=== PATIENT | male | born 1965 | race Caucasian/White ===

== ENCOUNTER 2019-03-24 08:58 | Outpatient (RCR) | payer MEDICARE, MEDICAID, SELFPAY | END 2019-03-26 23:59 | disposition home or self-care (01) | LOC: WOUND 08:58 | PROVIDERS: Family Provider Family Medicine; Visit Provider Nurse Practitioner Family | DX: E11.621 Type 2 diabetes mellitus with foot ulcer (principal); L97.512 Non-pressure chronic ulcer of other part of right foot with fat layer exposed; I96 Gangrene, not elsewhere classified | CPT/HCPCS: 11042; 87070; 87077; 87176; 87186; 87205; L3260 ==

== ENCOUNTER 2019-04-01 02:05 | Outpatient (RCR) | payer MEDICARE, MEDICAID, SELFPAY ==
--- NOTE | 2019-03-30 11:22 | USCV_ITS ---
Martinez Albarado Age: 53 Gender: M : 1965 Exam Date: 03/30/2019 11:36 Ordering Phys: Doris Matias Technologist: Sharon Callejas [place]am [place] [facility] [place]: HISTORY: Lower extremity swelling. PROCEDURES: Bilateral duplex Venous Insufficiency study of the Deep and Superficial systems was carried out according to normal protocol with the patient in supine positon for deep system and dependent position for the superficial system. FINDINGS: There is no evidence of bilateral deep vein thrombosis. No evidence of superficial thrombosis in the bilateral saphenous system. No evidence of reflux was noted in the LEFT deep venous system. Venous reflux was demonstrated in the RIGHT SFJ with a spectral display of greater than 500 milliseconds. No venous reflux noted in the RIGHT greater saphenous vein. No venous reflux noted in the RIGHT small saphenous vein. Venous reflux is demonstrated in the LEFT greater saphenous vein with a spectral Doppler display of greater than 500 milliseconds at all levels. No venous reflux noted in the LEFT small saphenous vein. CONCLUSIONS No evidence of DVT in the above-mentioned identifiable veins. Significant venous reflux of greater than 1000 ms were noted at the left femoral and popliteal veins On the right side, significant venous reflux of greater than 500 ms was noted at the saphenofemoral junction. On the left side, significant venous reflux of greater than 500 ms were noted distal to the saphenofemoral junction, proximal, mid and distal greater saphenous vein segments. The venous dimensions, reflux times and depth from the surface are as mentioned above Dr Hyun Campoverde MD [facility] (Electronically Signed) Final Date: 30 March 2019 19:20 S
== END 2019-04-24 23:59 | disposition home or self-care (01) ==
LOC: RAD 02:05
PROVIDERS: Family Provider Family Medicine; PCP Family Medicine; Visit Provider Nurse Practitioner Family
DX: M79.89 Other specified soft tissue disorders (principal); I73.9 Peripheral vascular disease, unspecified; M79.605 Pain in left leg; M79.604 Pain in right leg
CPT/HCPCS: 93970

== ENCOUNTER 2019-04-06 13:23 | Outpatient (CLI) | payer MEDICARE, MEDICAID, SELFPAY ==
[2019-04-06 14:10] LABS: Basophils % 0.5 %; Eosinophils # 0.1 10^3/uL (0.0-0.8); Eosinophils % 1.6 %; Hematocrit 26.8 % (42.0-52.0); Hemoglobin 7.8 g/dL (11.7-16.6); Lymphocytes # 1.7 10^3/uL (0.8-4.8); Mean Corpuscular HGB Conc 29.1 g/dL (30.0-36.0); Mean Corpuscular Hemoglobin 27.6 pg (28.0-34.0); Mean Corpuscular Volume 94.7 fL (80-94); Mean Platelet Volume 11.2 fL (7.4-10.4); Monocytes # 0.4 10^3/uL (0.2-0.9); Monocytes % 4.5 %; Neutrophils # 5.9 10^3/uL (1.8-7.7); Nucleated Red Blood Cells % 0 %; Platelet Count 363 10^3/cmm (130-400); Red Blood Count 2.83 10^6/uL (4.1-5.3); Red Cell Distribution Width 13.3 % (12.1-15.1); White Blood Count 8.2 10^3/uL (4.0-10.0)
[2019-04-06 14:59] LABS: Urine Creatinine 24 mg/dL (39-259)
[2019-04-06 15:00] LABS: Albumin Level 3.1 g/dL (3.5-5.2); Anion Gap 21.9 (5-19); Blood Urea Nitrogen 47 mg/dL (6-20); Calcium 9.8 mg/dL (8.5-10.5); Carbon Dioxide 25 mmol/L (22-29); Chloride 83 mmol/L (98-107); Potassium 4.9 mmol/L (3.5-5.1); Sodium 125 mmol/L (136-145)
[2019-04-06 15:09] LABS: UPRO/UCREAT Ratio 7.71 mg/mg CR; Urine Protein Random 185 mg/dL
[2019-04-06 15:14] LABS: Calcium 9.4 mg/dL (8.5-10.5); Parathyroid Hormone 30.2 pg/mL (15-65)
[2019-04-06 15:43] LABS: 25 Hydroxy Vitamin D 50 ng/mL (30-100)
[2019-04-06 15:59] LABS: Glucose 1068 mg/dL (65-115)
== END 2019-04-06 13:24 | disposition home or self-care (01) ==
LOC: LAB 13:30
PROVIDERS: Family Provider Family Medicine; PCP Family Medicine; Visit Provider Internal Medicine
DX: E10.42 Type 1 diabetes mellitus with diabetic polyneuropathy (principal); E78.49 Other hyperlipidemia; R14.0 Abdominal distension (gaseous); Z89.422 Acquired absence of other left toe(s); E10.22 Type 1 diabetes mellitus with diabetic chronic kidney disease; N18.3 Chronic kidney disease, stage 3 (moderate); I12.9 Hypertensive chronic kidney disease with stage 1 through stage 4 chronic kidney disease, or unspecified chronic kidney disease
CPT/HCPCS: 36415; 80069; 82306; 82310; 82570; 82985; 83970; 84156; 85025

== ENCOUNTER 2019-04-21 08:50 | Outpatient (RCR) | payer MEDICARE, MEDICAID, SELFPAY | END 2019-04-24 23:59 | disposition home or self-care (01) | LOC: WOUND 08:50 | PROVIDERS: Family Provider Family Medicine; PCP Family Medicine; Visit Provider Nurse Practitioner Family | DX: E11.621 Type 2 diabetes mellitus with foot ulcer (principal); L97.512 Non-pressure chronic ulcer of other part of right foot with fat layer exposed; I96 Gangrene, not elsewhere classified | CPT/HCPCS: 11042; 99214; G0463; L3260 ==

== ENCOUNTER 2019-05-04 | Outpatient (RCR) | payer MEDICARE, MEDICAID, SELFPAY | END 2019-05-12 | disposition home or self-care (01) | LOC: RAD | PROVIDERS: PCP Family Medicine; Visit Provider Nurse Practitioner Family | DX: E11.621 Type 2 diabetes mellitus with foot ulcer (principal); L97.512 Non-pressure chronic ulcer of other part of right foot with fat layer exposed; E11.22 Type 2 diabetes mellitus with diabetic chronic kidney disease; N18.4 Chronic kidney disease, stage 4 (severe) | CPT/HCPCS: 11042 ==

== ENCOUNTER 2019-05-12 10:34 | Outpatient (RCR) | payer MEDICARE, MEDICAID, SELFPAY ==
--- NOTE | 2019-05-12 10:38 | XR_ITS ---
WS: [id number] XR foot RT min 3V* [id number] REASON FOR EXAM: PAIN, REDNESS, NONHEALING ULCER FINDINGS: Ulcerated area under the great toe and second toe. No destructive changes of the phalanges metatarsals or tarsals. There is soft tissue swelling of the foot seen. XR/XR foot RT min 3V* [id number] IMPRESSION: Suspect ulcerated areas under the distal metatarsal phalangeal junction. Soft tissue swelling the foot.
--- NOTE | 2019-05-12 10:58 | USCV_ITS ---
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 Supernormal resting ABIs bilaterally Normal PVR waveforms Normal TBIs bilaterally CONCLUSIONS No evidence of any significant arterial obstruction, based on the above findings. Dr Hyun Campoverde MD FAC (Electronically Signed) Final Date: 13 May 2019 08:14 S
[2019-05-12 12:22] LABS: Basophils % 0.4 %; Eosinophils # 0.2 10^3/uL (0.0-0.8); Eosinophils % 3.3 %; Hematocrit 28.2 % (42.0-52.0); Hemoglobin 8.7 g/dL (11.7-16.6); Lymphocytes # 2.1 10^3/uL (0.8-4.8); Lymphocytes % 42.2 %; Mean Corpuscular HGB Conc 30.9 g/dL (30.0-36.0); Mean Corpuscular Hemoglobin 27.4 pg (28.0-34.0); Mean Corpuscular Volume 88.7 fL (80-94); Mean Platelet Volume 10.2 fL (7.4-10.4); Monocytes # 0.5 10^3/uL (0.2-0.9); Monocytes % 9.4 %; Neutrophils # 2.2 10^3/uL (1.8-7.7); Neutrophils % 44.5 %; Nucleated Red Blood Cells % 0 %; Platelet Count 341 10^3/cmm (130-400); Red Blood Count 3.18 10^6/uL (4.1-5.3); Red Cell Distribution Width 13.6 % (12.1-15.1); White Blood Count 4.9 10^3/uL (4.0-10.0)
[2019-05-12 12:42] LABS: Albumin Level 4.1 g/dL (3.5-5.2); Anion Gap 15.1 (5-19); Blood Urea Nitrogen 55 mg/dL (6-20); Calcium 10.2 mg/dL (8.5-10.5); Carbon Dioxide 33 mmol/L (22-29); Chloride 98 mmol/L (98-107); Glomerular Filtration Rate 16.8 mL/min (90-130); Glucose 94 mg/dL (65-115); Phosphorus 5.8 mg/dL (2.5-4.5); Potassium 5.1 mmol/L (3.5-5.1); Sodium 141 mmol/L (136-145)
[2019-05-12 13:45] LABS: Calcium 9.8 mg/dL (8.5-10.5); Parathyroid Hormone 62.9 pg/mL (15-65)
[2019-05-12 14:14] LABS: Urine Creatinine < 4 mg/dL (39-259); Urine Protein Random < 4 mg/dL
[2019-05-12 14:38] LABS: Anion Gap 14.1 (5-19); Blood Urea Nitrogen 47 mg/dL (6-20); Carbon Dioxide 33 mmol/L (22-29); Chloride 98 mmol/L (98-107); Ferritin 67 ng/mL (30-400); Glomerular Filtration Rate 16.8 mL/min (90-130); Glucose 91 mg/dL (65-115); Iron 87 ug/dL (59-158); Osmolality Calculated 288 mOsm/kg (285-295); Percent Saturation 25.8 % (20-50); Potassium 5.1 mmol/L (3.5-5.1); Sodium 140 mmol/L (136-145); Total Iron Binding Capacity 337 mcg/dl; Unsaturated Iron Binding 250 ug/dL (112-347)
[2019-05-13 13:21] LABS: C-Peptide <0.10 ng/mL (0.80-3.85)
== END 2019-05-25 23:59 | disposition home or self-care (01) ==
LOC: WOUND 10:34
PROVIDERS: Family Provider Family Medicine; PCP Family Medicine; Visit Provider Emergency Medicine
DX: E11.621 Type 2 diabetes mellitus with foot ulcer (principal); L97.512 Non-pressure chronic ulcer of other part of right foot with fat layer exposed; M79.671 Pain in right foot; E10.42 Type 1 diabetes mellitus with diabetic polyneuropathy; N18.3 Chronic kidney disease, stage 3 (moderate); M79.89 Other specified soft tissue disorders
CPT/HCPCS: 11042; 36415; 73630; 80048; 80069; 82310; 82570; 82728; 83540; 83550; 83970; 84156; 84681; 85025; 87070; 87077; 87176; 87186; 87205; 93923; A6446; L3260

== ENCOUNTER 2019-05-28 15:27 | Outpatient (CLI) | payer MEDICARE, MEDICAID, SELFPAY ==
--- NOTE | 2019-05-28 15:45 | US_ITS ---
WS: [id number] ULTRASOUND RENAL TECHNIQUE: Ultrasound examination of both kidneys. CLINICAL INFORMATION: ACUTE KIDNEY FAILURE COMPARISON: None. FINDINGS: RIGHT: Right kidney is normal in size and appearance. Echogenicity: Increased Cortical thickness: 1.4 cm; Normal. Hydronephrosis: None. Perinephric fluid: None. Right kidney measures: 12.9 cm x 5.3 cm x 5.8 cm. LEFT: Left kidney is normal in size and appearance. Echogenicity: Increased Cortical thickness: 1.9 cm; Normal. Hydronephrosis: None. Perinephric fluid: None. Left kidney measures: 12.9 cm x 4.7 cm x 5.4 cm. Normal visualized aorta. Normal bladder. US/US renal BI* [id number] IMPRESSION: 1. Both kidneys are normal in size. No hydronephrosis. 2. Increased echogenicity in both kidneys and be seen with medical renal disea se. No significant cortical atrophy. 3. Normal bladder.
== END 2019-05-28 15:28 | disposition home or self-care (01) ==
LOC: RADWPI 15:31
PROVIDERS: Family Provider Family Medicine; PCP Family Medicine; Visit Provider Nurse Practitioner Family
DX: N17.8 Other acute kidney failure (principal)
CPT/HCPCS: 76770

== ENCOUNTER 2019-06-09 11:16 | Outpatient (CLI) | payer MEDICARE, MEDICAID, SELFPAY ==
[2019-06-09 11:52] LABS: Basophils % 0.5 %; Eosinophils # 0.4 10^3/uL (0.0-0.8); Eosinophils % 6.5 %; Hematocrit 25.1 % (42.0-52.0); Hemoglobin 7.8 g/dL (11.7-16.6); Lymphocytes # 1.9 10^3/uL (0.8-4.8); Lymphocytes % 30.2 %; Mean Corpuscular HGB Conc 31.1 g/dL (30.0-36.0); Mean Corpuscular Hemoglobin 26.9 pg (28.0-34.0); Mean Corpuscular Volume 86.6 fL (80-94); Mean Platelet Volume 10.8 fL (7.4-10.4); Monocytes # 0.6 10^3/uL (0.2-0.9); Monocytes % 8.9 %; Neutrophils # 3.3 10^3/uL (1.8-7.7); Neutrophils % 53.7 %; Nucleated Red Blood Cells % 0 %; Platelet Count 243 10^3/cmm (130-400); Red Cell Distribution Width 14.6 % (12.1-15.1); White Blood Count 6.2 10^3/uL (4.0-10.0)
[2019-06-09 12:07] LABS: Albumin Level 3.5 g/dL (3.5-5.2); Anion Gap 13.8 (5-19); Blood Urea Nitrogen 32 mg/dL (6-20); Calcium 9.5 mg/dL (8.5-10.5); Carbon Dioxide 28 mmol/L (22-29); Chloride 104 mmol/L (98-107); Glomerular Filtration Rate 26.1 mL/min (90-130); Glucose 127 mg/dL (65-115); Phosphorus 5.1 mg/dL (2.5-4.5); Potassium 4.8 mmol/L (3.5-5.1); Sodium 141 mmol/L (136-145)
[2019-06-09 12:21] LABS: Bilirubin Urine Neg (NEGATIVE); Blood Urine Neg (Negative); Glucose Urine UA 1+ (Normal); Ketones Urine Negative (Negative); Nitrate Urine Negative (Negative); Protein Urine 3+ (Negative); Specific Gravity, Urine 1.015 (1.005-1.030); Urine Appearance Clear (CLEAR); Urine Color Yellow (Yellow); Urobilinogen Urine Norm (Negative); pH Urine 6 (5-7)
[2019-06-09 12:22] LABS: Leukocyte Esterase Urine Negative (Negative)
[2019-06-09 12:23] LABS: Add Urine Culture? No; Bacteria Urine TRACE; Hyaline Casts Urine 0-4; Squamous Epithelial Cell Urine 0-4 (0-5)
[2019-06-09 12:35] LABS: Urine Creatinine 116 mg/dL (39-259)
[2019-06-09 12:41] LABS: Calcium 9.2 mg/dL (8.5-10.5); Parathyroid Hormone 43.7 pg/mL (15-65)
[2019-06-09 13:10] LABS: UPRO/UCREAT Ratio 6.08 mg/mg CR; Urine Protein Random 705 mg/dL
[2019-06-09 13:11] LABS: Eosinophil Urine No Eosinophils Seen
== END 2019-06-09 11:17 | disposition home or self-care (01) ==
PROVIDERS: Family Provider Family Medicine; PCP Family Medicine; Visit Provider Nurse Practitioner Family
DX: N18.4 Chronic kidney disease, stage 4 (severe) (principal); N17.8 Other acute kidney failure
CPT/HCPCS: 36415; 80069; 81001; 82310; 82570; 83970; 84156; 85025; 85999

== ENCOUNTER 2019-06-22 14:08 | Outpatient (RCR) | payer MEDICARE, MEDICAID, SELFPAY | END 2019-06-24 23:59 | disposition home or self-care (01) | LOC: WOUND 14:08 | PROVIDERS: Family Provider Family Medicine; PCP Family Medicine; Visit Provider Thoracic Surgery (Cardiothoracic Vascular Surgery) | DX: E11.621 Type 2 diabetes mellitus with foot ulcer (principal); L97.512 Non-pressure chronic ulcer of other part of right foot with fat layer exposed | CPT/HCPCS: 11042; 29445; 36415; 80069; 81001; 82310; 82570; 83970; 84156; 85025; 85999; L4387 ==

== ENCOUNTER 2019-06-29 13:46 | Outpatient (CLI) | payer MEDICARE, MEDICAID, SELFPAY | END 2019-06-29 13:47 | disposition home or self-care (01) | LOC: WOUND 13:49 | PROVIDERS: Family Provider Family Medicine; PCP Family Medicine; Visit Provider Thoracic Surgery (Cardiothoracic Vascular Surgery) | DX: E11.621 Type 2 diabetes mellitus with foot ulcer (principal); L97.512 Non-pressure chronic ulcer of other part of right foot with fat layer exposed | CPT/HCPCS: 11042 ==

== ENCOUNTER 2019-07-13 10:33 | Outpatient (CLI) | payer MEDICARE, MEDICAID, SELFPAY | END 2019-07-13 10:34 | disposition home or self-care (01) | LOC: WOUND 10:34 | PROVIDERS: Family Provider Family Medicine; PCP Family Medicine; Visit Provider Thoracic Surgery (Cardiothoracic Vascular Surgery) | DX: E11.621 Type 2 diabetes mellitus with foot ulcer (principal); L97.512 Non-pressure chronic ulcer of other part of right foot with fat layer exposed | CPT/HCPCS: 11042 ==

== ENCOUNTER 2019-07-20 10:23 | Outpatient (CLI) | payer MEDICARE, MEDICAID, SELFPAY | END 2019-07-20 10:24 | disposition home or self-care (01) | LOC: WOUND 10:25 | PROVIDERS: PCP Family Medicine; Visit Provider Thoracic Surgery (Cardiothoracic Vascular Surgery) | DX: E11.621 Type 2 diabetes mellitus with foot ulcer (principal); L97.512 Non-pressure chronic ulcer of other part of right foot with fat layer exposed | CPT/HCPCS: 11042; A6530; A6545 ==

== ENCOUNTER 2019-07-20 11:41 | Outpatient (CLI) | payer MEDICARE, MEDICAID, SELFPAY ==
[2019-07-20 12:44] LABS: Anion Gap 12.5 (5-19); Blood Urea Nitrogen 38 mg/dL (6-20); Calcium 8.4 mg/dL (8.5-10.5); Carbon Dioxide 29 mmol/L (22-29); Chloride 104 mmol/L (98-107); Glomerular Filtration Rate 23.9 mL/min (90-130); Glucose 112 mg/dL (65-115); Osmolality Calculated 290 mOsm/kg (285-295); Potassium 4.5 mmol/L (3.5-5.1); Sodium 141 mmol/L (136-145)
== END 2019-07-20 11:42 | disposition home or self-care (01) ==
LOC: LAB 11:47
PROVIDERS: PCP Family Medicine; Visit Provider Nurse Practitioner Family
DX: N18.4 Chronic kidney disease, stage 4 (severe) (principal)
CPT/HCPCS: 80048

== ENCOUNTER 2019-07-22 13:28 | Outpatient (CLI) | payer MEDICARE, MEDICAID, SELFPAY ==
[2019-07-22 14:38] LABS: Estmated Average Glucose 240
[2019-07-22 14:46] LABS: Alanine Aminotransferase 25 U/L (0-41); Anion Gap 13.3 (5-19); Blood Urea Nitrogen 41 mg/dL (6-20); Carbon Dioxide 28 mmol/L (22-29); Chloride 103 mmol/L (98-107); Chol HDL Ratio 3.44 mg/dL (1.0-5.00); Cholesterol 148 mg/dL (0-200); Glomerular Filtration Rate 24.9 mL/min (90-130); Glucose 161 mg/dL (65-115); HDL Cholesterol 43 mg/dL (60-100); LDL Cholesterol Calculated 82 mg/dL (50-129); Osmolality Calculated 291 mOsm/kg (285-295); Potassium 4.3 mmol/L (3.5-5.1); Sodium 140 mmol/L (136-145); Triglycerides 114 mg/dL (0-150); VLDL Cholestrol Calculation 23 mg/dL (0-30)
== END 2019-07-22 13:29 | disposition home or self-care (01) ==
LOC: LAB 13:37
PROVIDERS: PCP Family Medicine; Visit Provider Physician Assistant Medical
DX: E10.65 Type 1 diabetes mellitus with hyperglycemia (principal); E10.42 Type 1 diabetes mellitus with diabetic polyneuropathy; E10.22 Type 1 diabetes mellitus with diabetic chronic kidney disease; I10 Essential (primary) hypertension; E78.49 Other hyperlipidemia; E10.29 Type 1 diabetes mellitus with other diabetic kidney complication
CPT/HCPCS: 36415; 80048; 80061; 83036; 84460

== ENCOUNTER 2019-08-08 14:27 | Outpatient (CLI) | payer MEDICARE, MEDICAID, SELFPAY ==
[2019-08-08 14:58] LABS: Basophils % 0.6 %; Eosinophils # 0.1 10^3/uL (0.0-0.8); Eosinophils % 2.5 %; Hematocrit 28.8 % (42.0-52.0); Hemoglobin 9.3 g/dL (11.7-16.6); Lymphocytes # 2.3 10^3/uL (0.8-4.8); Lymphocytes % 43.1 %; Mean Corpuscular HGB Conc 32.3 g/dL (30.0-36.0); Mean Corpuscular Hemoglobin 26.3 pg (28.0-34.0); Mean Corpuscular Volume 81.6 fL (80-94); Mean Platelet Volume 10.6 fL (7.4-10.4); Monocytes # 0.4 10^3/uL (0.2-0.9); Monocytes % 7.5 %; Neutrophils # 2.4 10^3/uL (1.8-7.7); Neutrophils % 46.1 %; Nucleated Red Blood Cells % 0 %; Platelet Count 236 10^3/cmm (130-400); Red Blood Count 3.53 10^6/uL (4.1-5.3); White Blood Count 5.2 10^3/uL (4.0-10.0)
[2019-08-08 15:18] LABS: Alanine Aminotransferase 19 U/L (0-41); Albumin Level 3.5 g/dL (3.5-5.2); Anion Gap 14.9 (5-19); Blood Urea Nitrogen 36 mg/dL (6-20); Calcium 9.3 mg/dL (8.5-10.5); Carbon Dioxide 27 mmol/L (22-29); Chloride 101 mmol/L (98-107); Chol HDL Ratio 5.31 mg/dL (1.0-5.00); Cholesterol 207 mg/dL (0-200); Ferritin 69 ng/mL (30-400); Glomerular Filtration Rate 20.5 mL/min (90-130); Glucose 132 mg/dL (65-115); HDL Cholesterol 39 mg/dL (60-100); Iron 76 ug/dL (59-158); LDL Cholesterol Calculated 134 mg/dL (50-129); LDL HDL Ratio 3.44 RATIO (0.00-3.22); Percent Saturation 41.7 % (20-50); Phosphorus 4.8 mg/dL (2.5-4.5); Potassium 3.9 mmol/L (3.5-5.1); Sodium 139 mmol/L (136-145); Total Iron Binding Capacity 182 mcg/dl; Triglycerides 169 mg/dL (0-150); Unsaturated Iron Binding 106 ug/dL (112-347)
[2019-08-08 15:28] LABS: Urine Creatinine 107 mg/dL (39-259)
[2019-08-08 15:36] LABS: Calcium 9.5 mg/dL (8.5-10.5); Parathyroid Hormone 28.8 pg/mL (15-65)
[2019-08-08 15:50] LABS: UPRO/UCREAT Ratio 4.42 mg/mg CR; Urine Protein Random 473 mg/dL
[2019-08-08 16:01] LABS: Estmated Average Glucose 240
== END 2019-08-08 14:28 | disposition home or self-care (01) ==
PROVIDERS: PCP Family Medicine; Visit Provider Internal Medicine
DX: E10.65 Type 1 diabetes mellitus with hyperglycemia (principal); E10.42 Type 1 diabetes mellitus with diabetic polyneuropathy; E10.22 Type 1 diabetes mellitus with diabetic chronic kidney disease; N18.4 Chronic kidney disease, stage 4 (severe); D63.1 Anemia in chronic kidney disease; I12.9 Hypertensive chronic kidney disease with stage 1 through stage 4 chronic kidney disease, or unspecified chronic kidney disease; E10.29 Type 1 diabetes mellitus with other diabetic kidney complication; E78.49 Other hyperlipidemia
CPT/HCPCS: 36415; 80061; 80069; 82310; 82570; 82728; 83036; 83540; 83550; 83970; 84156; 84460; 85025

== ENCOUNTER 2019-09-20 09:04 | Outpatient (CLI) | payer MEDICARE, MEDICAID, SELFPAY ==
[2019-09-20 10:16] LABS: Basophils % 0.6 %; Eosinophils # 0.2 10^3/uL (0.0-0.8); Eosinophils % 3.4 %; Hematocrit 30.3 % (42.0-52.0); Hemoglobin 9.7 g/dL (11.7-16.6); Lymphocytes # 2.5 10^3/uL (0.8-4.8); Lymphocytes % 35.4 %; Mean Corpuscular Volume 81.2 fL (80-94); Mean Platelet Volume 10.9 fL (7.4-10.4); Monocytes # 0.5 10^3/uL (0.2-0.9); Monocytes % 7.2 %; Neutrophils # 3.72 10^3/uL (1.8-7.7); Neutrophils % 53.3 %; Nucleated Red Blood Cells % 0 %; Platelet Count 291 10^3/cmm (130-400); Red Blood Count 3.73 10^6/uL (4.1-5.3); Red Cell Distribution Width 15.1 % (12.1-15.1)
[2019-09-20 10:37] LABS: Albumin Level 3.2 g/dL (3.5-5.2); Blood Urea Nitrogen 42 mg/dL (6-20); Carbon Dioxide 28 mmol/L (22-29); Chloride 102 mmol/L (98-107); Ferritin 139 ng/mL (30-400); Glomerular Filtration Rate 18.5 mL/min (90-130); Glucose 121 mg/dL (65-115); Iron 63 ug/dL (59-158); Percent Saturation 38.6 % (20-50); Phosphorus 4.2 mg/dL (2.5-4.5); Sodium 138 mmol/L (136-145); Total Iron Binding Capacity 163 mcg/dl; Unsaturated Iron Binding 100 ug/dL (112-347)
[2019-09-20 10:39] LABS: Urine Creatinine 134 mg/dL (39-259)
[2019-09-20 10:49] LABS: Calcium 8.6 mg/dL (8.5-10.5); Parathyroid Hormone 69.4 pg/mL (15-65)
[2019-09-20 10:52] LABS: UPRO/UCREAT Ratio 3.99 mg/mg CR; Urine Protein Random 535 mg/dL
== END 2019-09-20 09:05 | disposition home or self-care (01) ==
PROVIDERS: PCP Family Medicine; Visit Provider Nurse Practitioner Family
DX: D63.1 Anemia in chronic kidney disease (principal)
CPT/HCPCS: 36415; 80069; 82310; 82570; 82728; 83540; 83550; 83970; 84156; 85025

== ENCOUNTER 2019-09-20 09:20 | Outpatient (CLI) | payer MEDICARE, MEDICAID, SELFPAY ==
[2019-09-20 10:36] LABS: Alanine Aminotransferase 23 U/L (0-41); Anion Gap 14.1 (5-19); Blood Urea Nitrogen 43 mg/dL (6-20); Calcium 7.9 mg/dL (8.5-10.5); Carbon Dioxide 27 mmol/L (22-29); Chloride 102 mmol/L (98-107); Chol HDL Ratio 5.68 mg/dL (1.0-5.00); Cholesterol 216 mg/dL (0-200); Glomerular Filtration Rate 19.1 mL/min (90-130); Glucose 123 mg/dL (65-115); HDL Cholesterol 38 mg/dL (60-100); LDL Cholesterol Calculated 132 mg/dL (50-129); Osmolality Calculated 287 mOsm/kg (285-295); Potassium 4.1 mmol/L (3.5-5.1); Sodium 139 mmol/L (136-145); Triglycerides 228 mg/dL (0-150); VLDL Cholestrol Calculation 46 mg/dL (0-30)
== END 2019-09-20 09:21 | disposition home or self-care (01) ==
PROVIDERS: PCP Family Medicine; Visit Provider Physician Assistant Medical
DX: E10.65 Type 1 diabetes mellitus with hyperglycemia (principal); E10.42 Type 1 diabetes mellitus with diabetic polyneuropathy; E10.22 Type 1 diabetes mellitus with diabetic chronic kidney disease; I10 Essential (primary) hypertension; E78.49 Other hyperlipidemia; E10.29 Type 1 diabetes mellitus with other diabetic kidney complication
CPT/HCPCS: 36415; 80048; 80061; 84460

== ENCOUNTER 2019-10-15 09:07 | Emergency (ER) | payer MEDICARE, MEDICAID, SELFPAY ==
[2019-10-15] VITALS (24 sets, daily range): BP systolic 171–229; BP diastolic 81–136; PULSE 69–86; RESP 5–23; TEMP 36.8; O2SAT 89–99; BMI 25.0
--- NOTE | 2019-10-15 09:22 | ECG_ITS ---
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 Measurements Intervals [place] Rate: 81 P: 53 MT: 166 QRS: 9 QRSD: 118 T: 64 QT: 396 QTc: 460 Interpretive Statements SINUS RHYTHM POSSIBLE LEFT ATRIAL ENLARGEMENT [-0.1mV P WAVE IN V1/V2] INCOMPLETE RIGHT BUNDLE BRANCH BLOCK [90+ ms QRS DURATION, TERMINAL R IN V1/V2, 40+ ms S IN I/aVL/V4/V5/V6] NONSPECIFIC T-WAVE ABNORMALITY Compared to ECG 10/30/2018 12:02:45 Incomplete right bundle-branch block now present Prolonged QT interval no longer present T-wave abnormality still present Electronically Signed On 10-16-2019 19:43:11 CDT by Miguel Angel Hamilton M.D. [id number]
--- NOTE | 2019-10-15 09:22 | CT_ITS ---
WS: [id number] CT THORACIC SPINE HISTORY: pain TECHNIQUE: Contiguous 2.5 mm axial images are reviewed to thoracic spine. Images are reformatted in s agittal and coronal planes. All CT scans at [facility] use at least one of these dose opt imization techniques: automated exposure control; mA and/or kV adjustment per patient size (includes targeted exams where dose is matched to clinical indication); or iterative reconstruction. DLP: 1577.76 mGy.cm COMPARISON: None available. Slight increase in thoracic kyphosis. Very mild anterior wedging of T4 and T10. No acute fractures. T1-2: Normal. T2-3: Normal. T3-4: Normal. T4-5: Small osteophytes encroach into the posterior thecal sac without stenosis. T5-6: Posterior osteophytes without significant encroachment. T6-7: Posterior osteophytes encroach into the posterior lateral thecal sac. No stenosis. T7-8: Small vertebral body osteophytes. Mild encroachment upon the RIGHT lateral thecal sac. Small c entral disc protrusion T8-9: Mild osteophytic ridging with small foraminal osteophytes. Mild RIGHT foraminal narrowing. T9-10: Normal. T10-11: Mild osteophytic ridging. Mild central and foraminal stenosis. T11-12: Normal. Paravertebral soft tissues are normal. Mild perinephric stranding in the superior poles of each kidney. Nonobstructing calcifications upper poles of each kidney also. CT/CT thoracic spin wo con* [id number] IMPRESSION: 1. No significant central or foraminal stenosis. 2. Small central disc protrusion at T7-8. 3. Multilevel facet joint arthritis with mild encroachment into the thecal sac . 4. No acute fracture.
--- NOTE | 2019-10-15 09:23 | XR_ITS ---
WS: [id number] EXAM: AP CHEST: PORTABLE UPRIGHT DATE OF EXAM: 10/15/2019, 0929 hours COMPARISON: Chest x-rays from 08/23/2018 12/16/2013 HISTORY: Patient is 53 years old with chest back pain, kidney pain. FINDINGS: The cardiac silhouette is normal in size. The mediastinal contours are similar. Calcified plaque i n the aorta. The pulmonary vascularity is normal. The lungs are clear of infiltrate. There is no effusion or pneumothorax. No acute bony abnormality is seen. XR/XR chest 1V portable [id number] IMPRESSION: No acute pulmonary disease.
--- NOTE | 2019-10-15 09:24 | ED_ITS ---
HPI - General Adult General: Chief complaint: General Medical Stated complaint: KIDNEY PAIN Time Seen by Provider: 10/15/19 09:14 History of Present Illness: HPI narrative: Patient presents with a 3-day history of upper mid back pain. Patient stated day before yesterday he had a, dull ache in his mid back and then yesterday started hurting all the time became sharper radiating out from his spine to underneath his shoulder blades and he had a hard time standing up straight. Today pain woke him up from sleep he said he cannot stand up straight because it hurts to move and that it is hard for him to pick anything up because his back hurts. He said has been clammy when the pain hits pretty bad. Denies shortness of breath says pain does come into his chest. Patient is type I diabetic he is on insulin pump blood sugars run from 80-200 in the afternoon. States he did not take his blood pressure medication this morning he usually runs high blood pressure. Denies any injury. MD complaint: Upper mid back pain Onset (ago): day(s) (3) Location: back Radiation: back Severity: severe Severity scale (1-10): 9 Quality: aching and sharp Pain Consistency: constant Relieving factors: immobilization Exacerbating factors: movement Associated symptoms: Reports diaphoresis; Deny chest pain, dyspnea, headache(s), nausea, rash or vomiting Review of Systems Const: Reports: diaphoresis Eyes: Denies: change in vision or blurry vision ENMT: Denies: throat pain or nasal congestion Card: Denies: chest pain or dyspnea on exertion Resp: Denies: dyspnea, productive cough or non-productive cough GI: Denies: abdominal pain, nausea or vomiting : Denies: difficulty urinating Musc: Reports: back pain; Denies: extremity pain Skin/Breast: Denies: rash Neuro: Denies: headache(s) Psych: Denies: anxiety or depression Mukesh/Lymph: Denies: easy bruising Physical Exam Const: COMMON NORMALS: no acute distress, average body habitus and patient oriented x3 HENMT: COMMON NORMALS: normocephalic HEAD & SCALP: normal to inspection and normocephalic FACE & SINUS: normal facial exam Eye: COMMON NORMALS: conjunctivae normal GENERAL EYE: appearance normal, both eyes and all related structures CONJUNCTIVA: Yes conjunctivae normal Neck/C-Spine: COMMON NORMALS: no JVD Chest: COMMONS NORMALS: normal inspection of the chest Resp: COMMON NORMALS: normal respiratory effort and clear to auscultation bilaterally AUSCULTATION: clear to auscultation bilaterally Cardio: COMMON NORMALS: no JVD, regular rate and regular rhythm RATE: regular rate RHYTHM: regular rhythm GI: COMMON NORMALS: Normal to inspection, nondistended, normoactive bowel sounds present Back/Pelvis: THORACIC SPINE/UPPER BACK: Yes pain with ROM and Yes paraspinal muscle tenderness (Pain with palpation to the muscles underneath both shoulder blades) Thoracic paraspinal muscle tenderness: bilateral Extremity: COMMON NORMALS: normal to inspection and full ROM Neuro: COMMON NORMALS: patient oriented x3 Course Vital Signs: Vital signs: Vital Signs Temperature 98.3 F 10/15/19 09:09 Pulse Rate 86 10/15/19 12:55 Respiratory Rate 16 10/15/19 12:55 Blood Pressure 174/81 10/15/19 12:55 Pulse Oximetry 97 10/15/19 12:55 MDM - General Adult MDM Narrative: Medical decision making narrative: Discussed case with Dr. Taylor reviewed EKG Lab Data: Labs: Lab Results 10/15/19 10/15/19 10/15/19 Range/Units 09:46 09:46 09:46 WBC 8.4 (4.0-10.0) 10^3/ uL RBC 3.77 L (4.1-5.3) 10^6/u L Hgb 10.0 L (11.7-16.6) g/dL Hct 30.6 L (42.0-52.0) % MCV 81.2 (80-94) fL MCH 26.5 L (28.0-34.0) pg MCHC 32.7 (30.0-36.0) g/dL RDW 15.3 H (12.1-15.1) % Plt Count 292 (130-400) 10^3/c mm MPV 10.2 (7.4-10.4) fL Neut % (Auto) 66.8 % Lymph % (Auto) 23.2 % [place] % (Auto) 7.5 % Eos % (Auto) 2.0 % Baso % (Auto) 0.4 % Neut # (Auto) 5.60 (1.8-7.7) 10^3/u L Lymph # (Auto) 2.0 (0.8-4.8) 10^3/u L [place] # (Auto) 0.6 (0.2-0.9) 10^3/u L Eos # (Auto) 0.2 (0.0-0.8) 10^3/u L Baso # (Auto) 0.0 (0.0-0.1) 10^3/u L Nucleated RBC % (a uto) 0 % Nucleated RBCs # 0.0 /100WBC Sodium 138 (136-145) mmol/L Potassium 3.9 (3.5-5.1) mmol/L Chloride 102 (98-107) mmol/L Carbon Dioxide 28 (22-29) mmol/L Anion Gap 11.9 (5-19) BUN 35 H (6-20) mg/dL Creatinine 3.5 H (0.7-1.2) mg/dL GFR Calculation 18.5 L (90-130) mL/min Glucose 217 H (65-115) mg/dL Calculated Osmolal ity 290 (285-295) mOsm/k g Calcium 8.8 (8.5-10.5) mg/dL Total Bilirubin 0.5 (0.15-1.2) mg/dL AST 13 (0-40) U/L ALT 12 (0-41) U/L Alkaline Phosphata se 98 (40-130) IU/L Troponin T Gen 5 n g/L 62 H (0-15) ng/L Troponin T 120 Min [place] (0-15) ng/L Delta Troponin T (0-10) ABS# Total Protein 6.5 L (6.6-8.7) g/dL Albumin 3.3 L (3.5-5.2) g/dL Globulin 3.2 (1.3-4.6) g/dL 10/15/19 Range/Units 11:42 WBC (4.0-10.0) 10^3/ uL RBC (4.1-5.3) 10^6/u L Hgb (11.7-16.6) g/dL Hct (42.0-52.0) % MCV (80-94) fL MCH (28.0-34.0) pg MCHC (30.0-36.0) g/dL RDW (12.1-15.1) % Plt Count (130-400) 10^3/c mm MPV (7.4-10.4) fL Neut % (Auto) % Lymph % (Auto) % [place] % (Auto) % Eos % (Auto) % Baso % (Auto) % Neut # (Auto) (1.8-7.7) 10^3/u L Lymph # (Auto) (0.8-4.8) 10^3/u L [place] # (Auto) (0.2-0.9) 10^3/u L Eos # (Auto) (0.0-0.8) 10^3/u L Baso # (Auto) (0.0-0.1) 10^3/u L Nucleated RBC % (a uto) % Nucleated RBCs # /100WBC Sodium (136-145) mmol/L Potassium (3.5-5.1) mmol/L Chloride (98-107) mmol/L Carbon Dioxide (22-29) mmol/L Anion Gap (5-19) BUN (6-20) mg/dL Creatinine (0.7-1.2) mg/dL GFR Calculation (90-130) mL/min Glucose (65-115) mg/dL Calculated Osmolal ity (285-295) mOsm/k g Calcium (8.5-10.5) mg/dL Total Bilirubin (0.15-1.2) mg/dL AST (0-40) U/L ALT (0-41) U/L Alkaline Phosphata se (40-130) IU/L Troponin T Gen 5 n g/L (0-15) ng/L Troponin T 120 Min [place] 55.40 H (0-15) ng/L Delta Troponin T -6.6 L (0-10) ABS# Total Protein (6.6-8.7) g/dL Albumin (3.5-5.2) g/dL Globulin (1.3-4.6) g/dL Discharge Plan Discharge Patient Disposition: Home Clinical Impression: Protrusion of thoracic intervertebral disc Hypertension Qualifiers: Hypertension type: essential hypertension Qualified Code(s): I10 - Essential (primary) hypertension Condition: Stable Prescriptions: New cyclobenzaprine 5 mg tablet 5 mg PO TID PRN (Reason: muscle spasm) Qty: 10 RF: 0 No Action atorvastatin 40 mg tablet 40 mg PO DAILY RF: 0 carvedilol 25 mg tablet 25 mg PO BID RF: 0 torsemide 10 mg tablet 10 mg PO DAILY RF: 0 oxycodone-acetaminophen 5-325 mg tablet 1 tab PO Q6H PRN (Reason: Pain) RF: 0 amlodipine 10 mg tablet 10 mg PO DAILY RF: 0 potassium citrate 10 mEq (1,080 mg) tablet extended release 10 meq PO DAILY RF: 0 Novolog U-100 Insulin aspart 100 unit/mL solution See Rx Instructions .ROUTE .COMPLEX RF: 0 ferrous sulfate 325 mg (65 mg iron) tablet 325 mg PO BID RF: 0 montelukast 10 mg tablet 10 mg PO DAILY RF: 0 Novolog Flexpen U-100 Insulin 100 unit/mL (3 mL) insulin pen See Rx Instructions .ROUTE .COMPLEX RF: 0 pregabalin 150 mg capsule 150 mg PO BID RF: 0 Vitamin B-12 1 tab PO DAILY RF: 0 Discharge Orders: Discharge Order (Routine); Ordered 10/15/19 Ordered By: Celso Hinds Referrals: Gregg Guerrero MD [Primary Care Provider] - Discharge Diet: Usual diet Discharge Activity: Increase activity as tolerated Patient Instructions: Back Pain (ED) Activity Restrictions/Additional Instructions: Follow-up with medical provider as directed. Take medications as prescribed. Return to the ER or your medical provider if condition worsens. Please read and understand discharge instructions. If any questions ask please. Follow-up with your primary care doctor concerning the bulging disc you have in your thoracic spine. No heavy lifting or anything over 10 pounds for next 3 to 4 weeks. 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
[2019-10-15] MEDS: carvedilol 6.25 mg Tablet PO (09:46)
[2019-10-15] MEDS: ketorolac 30 mg/mL INJ IVP (09:46)
[2019-10-15] MEDS: amlodipine 10 mg Tablet PO (09:46)
[2019-10-15] MEDS: nitroglycerin 1 gm/inch oint Pkt 1 INCH TOPICAL (09:52)
[2019-10-15 09:57] LABS: Basophils % 0.4 %; Eosinophils # 0.2 10^3/uL (0.0-0.8); Hematocrit 30.6 % (42.0-52.0); Lymphocytes % 23.2 %; Mean Corpuscular HGB Conc 32.7 g/dL (30.0-36.0); Mean Corpuscular Hemoglobin 26.5 pg (28.0-34.0); Mean Corpuscular Volume 81.2 fL (80-94); Mean Platelet Volume 10.2 fL (7.4-10.4); Monocytes # 0.6 10^3/uL (0.2-0.9); Monocytes % 7.5 %; Neutrophils % 66.8 %; Nucleated Red Blood Cells % 0 %; Platelet Count 292 10^3/cmm (130-400); Red Blood Count 3.77 10^6/uL (4.1-5.3); Red Cell Distribution Width 15.3 % (12.1-15.1); White Blood Count 8.4 10^3/uL (4.0-10.0)
[2019-10-15 10:13] LABS: Alanine Aminotransferase 12 U/L (0-41); Albumin Level 3.3 g/dL (3.5-5.2); Alkaline Phosphatase 98 IU/L (40-130); Anion Gap 11.9 (5-19); Aspartate Amino Transferase 13 U/L (0-40); Blood Urea Nitrogen 35 mg/dL (6-20); Calcium 8.8 mg/dL (8.5-10.5); Carbon Dioxide 28 mmol/L (22-29); Chloride 102 mmol/L (98-107); Globulin 3.2 g/dL (1.3-4.6); Glomerular Filtration Rate 18.5 mL/min (90-130); Glucose 217 mg/dL (65-115); Osmolality Calculated 290 mOsm/kg (285-295); Potassium 3.9 mmol/L (3.5-5.1); Sodium 138 mmol/L (136-145); Total Bilirubin 0.5 mg/dL (0.15-1.2); Total Protein 6.5 g/dL (6.6-8.7); Troponin T (5th) Once 62 ng/L (0-15)
[2019-10-15] MEDS: hyDRALAzine 20 mg/mL INJ 1 mL 10 MG IVP (11:40)
--- NOTE | 2019-10-15 12:18 | ECG_ITS ---
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 Measurements Intervals [place] Rate: 79 P: 54 IA: 122 QRS: 15 QRSD: 112 T: 54 QT: 407 QTc: 467 Interpretive Statements SINUS RHYTHM POSSIBLE LEFT ATRIAL ENLARGEMENT [-0.1mV P WAVE IN V1/V2] INCOMPLETE RIGHT BUNDLE BRANCH BLOCK [90+ ms QRS DURATION, TERMINAL R IN V1/V2, 40+ ms S IN I/aVL/V4/V5/V6] NONSPECIFIC ST & T-WAVE ABNORMALITY Compared to ECG 10/15/2019 09:43:16 No significant changes Electronically Signed On 10-17-2019 20:06:38 CDT by Miguel Angel Hamilton M.D. [id number]
[2019-10-15 12:38] LABS: Troponin 5 2HR Delta -6.6 ABS# (0-10)
== END 2019-10-15 13:07 | disposition home or self-care (01) ==
PROVIDERS: Emergency Provider Nurse Practitioner Family; PCP Family Medicine
DX: M51.24 Other intervertebral disc displacement, thoracic region (principal); I10 Essential (primary) hypertension; Z79.4 Long term (current) use of insulin
CPT/HCPCS: 12345; 71045; 72128; 80053; 84484; 85025; 93005; 96374; 96375; 99283; 99284; J0360; J1885

== ENCOUNTER 2019-11-17 20:00 | Outpatient (CLI) | payer MEDICARE, MEDICAID, SELFPAY | END 2019-11-17 20:01 | disposition home or self-care (01) | LOC: SLEEP 11-18 09:22 | PROVIDERS: PCP Family Medicine; Visit Provider Family Medicine | DX: G47.33 Obstructive sleep apnea (adult) (pediatric) (principal) | CPT/HCPCS: 95811 ==

== ENCOUNTER 2019-12-02 12:17 | Outpatient (CLI) | payer MEDICARE, MEDICAID, SELFPAY ==
[2019-12-02 13:14] LABS: Basophils % 0.6 %; Eosinophils # 0.1 10^3/uL (0.0-0.8); Eosinophils % 1.9 %; Lymphocytes # 1.9 10^3/uL (0.8-4.8); Lymphocytes % 26.7 %; Mean Corpuscular Hemoglobin 27.7 pg (28.0-34.0); Mean Corpuscular Volume 86.5 fL (80-94); Mean Platelet Volume 11.6 fL (7.4-10.4); Monocytes # 0.5 10^3/uL (0.2-0.9); Monocytes % 7.4 %; Neutrophils # 4.43 10^3/uL (1.8-7.7); Neutrophils % 63.1 %; Nucleated Red Blood Cells % 0 %; Platelet Count 240 10^3/cmm (130-400); Red Blood Count 2.89 10^6/uL (4.1-5.3); Red Cell Distribution Width 15.4 % (12.1-15.1)
[2019-12-02 13:28] LABS: Albumin Level 3.2 g/dL (3.5-5.2); Anion Gap 10.7 (5-19); Blood Urea Nitrogen 53 mg/dL (6-20); Calcium 8.7 mg/dL (8.5-10.5); Carbon Dioxide 27 mmol/L (22-29); Chloride 103 mmol/L (98-107); Glomerular Filtration Rate 18.4 mL/min (90-130); Glucose 326 mg/dL (65-115); Iron 74 ug/dL (59-158); Percent Saturation 41.1 % (20-50); Phosphorus 4.5 mg/dL (2.5-4.5); Potassium 4.7 mmol/L (3.5-5.1); Sodium 136 mmol/L (136-145); Total Iron Binding Capacity 180 mcg/dl; Unsaturated Iron Binding 106 ug/dL (112-347)
[2019-12-02 13:37] LABS: Urine Creatinine 56 mg/dL (39-259)
[2019-12-02 13:50] LABS: UPRO/UCREAT Ratio 8.32 mg/mg CR; Urine Protein Random 466 mg/dL
[2019-12-02 14:36] LABS: Calcium 9.2 mg/dL (8.5-10.5); Parathyroid Hormone 67.1 pg/mL (15-65)
[2019-12-07 10:00] LABS: Ferritin 157 ng/mL (30-400)
== END 2019-12-02 12:18 | disposition home or self-care (01) ==
PROVIDERS: PCP Family Medicine; Visit Provider Nurse Practitioner Family
DX: N18.4 Chronic kidney disease, stage 4 (severe) (principal); D63.1 Anemia in chronic kidney disease
CPT/HCPCS: 36415; 80069; 82310; 82570; 82728; 83540; 83550; 83970; 84156; 85025

== ENCOUNTER 2019-12-07 13:53 | Outpatient (CLI) | payer MEDICARE, MEDICAID, SELFPAY | END 2019-12-07 13:54 | disposition home or self-care (01) | LOC: WOUND 13:53 | PROVIDERS: PCP Family Medicine; Visit Provider Thoracic Surgery (Cardiothoracic Vascular Surgery) | DX: E11.621 Type 2 diabetes mellitus with foot ulcer (principal); L97.522 Non-pressure chronic ulcer of other part of left foot with fat layer exposed; L97.422 Non-pressure chronic ulcer of left heel and midfoot with fat layer exposed | CPT/HCPCS: 11042; G0463; L3260 ==

== ENCOUNTER 2019-12-14 12:35 | Outpatient (CLI) | payer MEDICARE, MEDICAID, SELFPAY ==
--- NOTE | 2019-12-14 12:40 | XR_ITS ---
WS: [id number] LEFT FOOT: 3 VIEW(S) TECHNIQUE: AP, oblique and lateral. HISTORY: PAIN, REDNESS, NON HEALING ULCER COMPARISON: 02/19/2018 Prior amputation of the third toe. Mild soft tissue edema surrounding the first and second toes. Very superficial 4 mm ulceration along the dorsal surface of the distal first toe. No osteomyelitis. Mild diffuse soft tissue edema and peripheral arterial calcifications. XR/XR foot LT min 3V* [id number] IMPRESSION: 1. No evidence for osteomyelitis. 2. Superficial 4 mm soft tissue ulceration along the dorsal surface first toe. 3. Prior third toe amputation.
== END 2019-12-14 12:36 | disposition home or self-care (01) ==
LOC: RADWPI 12:39
PROVIDERS: Family Provider Family Medicine; PCP Family Medicine; Visit Provider Thoracic Surgery (Cardiothoracic Vascular Surgery)
DX: M79.672 Pain in left foot (principal); L53.9 Erythematous condition, unspecified; L97.529 Non-pressure chronic ulcer of other part of left foot with unspecified severity; Z89.422 Acquired absence of other left toe(s)
CPT/HCPCS: 73630

== ENCOUNTER 2019-12-14 13:20 | Outpatient (CLI) | payer MEDICARE, MEDICAID, SELFPAY | END 2019-12-14 13:21 | disposition home or self-care (01) | LOC: WOUND 13:21 | PROVIDERS: Family Provider Family Medicine; PCP Family Medicine; Visit Provider Thoracic Surgery (Cardiothoracic Vascular Surgery) | DX: E11.621 Type 2 diabetes mellitus with foot ulcer (principal); L97.522 Non-pressure chronic ulcer of other part of left foot with fat layer exposed; M79.672 Pain in left foot; L53.9 Erythematous condition, unspecified; L97.529 Non-pressure chronic ulcer of other part of left foot with unspecified severity; Z89.422 Acquired absence of other left toe(s) | CPT/HCPCS: 11042; 73630; 87102; 87206 ==

== ENCOUNTER 2019-12-18 13:32 | Emergency (ER) | payer MEDICARE, MEDICAID, SELFPAY ==
[2019-12-18] VITALS (12 sets, daily range): BP systolic 136–206; BP diastolic 67–100; PULSE 64–80; RESP 15–20; TEMP 36.8; O2SAT 93–97; BMI 28.7
[2019-12-18 15:03] LABS: Basophils % 0.3 %; Eosinophils # 0.2 10^3/uL (0.0-0.8); Eosinophils % 2.5 %; Hematocrit 23.3 % (42.0-52.0); Hemoglobin 7.4 g/dL (11.7-16.6); Lymphocytes # 1.3 10^3/uL (0.8-4.8); Mean Corpuscular HGB Conc 31.8 g/dL (30.0-36.0); Mean Corpuscular Hemoglobin 28.1 pg (28.0-34.0); Mean Corpuscular Volume 88.6 fL (80-94); Mean Platelet Volume 10.9 fL (7.4-10.4); Monocytes # 0.7 10^3/uL (0.2-0.9); Monocytes % 7.7 %; Neutrophils # 7.35 10^3/uL (1.8-7.7); Neutrophils % 76.3 %; Nucleated Red Blood Cells % 0 %; Platelet Count 184 10^3/cmm (130-400); Red Blood Count 2.63 10^6/uL (4.1-5.3); Red Cell Distribution Width 16.1 % (12.1-15.1); White Blood Count 9.6 10^3/uL (4.0-10.0)
[2019-12-18 15:45] LABS: Alanine Aminotransferase 43 U/L (0-41); Albumin Level 3.2 g/dL (3.5-5.2); Alkaline Phosphatase 121 IU/L (40-130); Anion Gap 12.8 (5-19); Aspartate Amino Transferase 22 U/L (0-40); Blood Urea Nitrogen 51 mg/dL (6-20); Calcium 9.1 mg/dL (8.5-10.5); Carbon Dioxide 24 mmol/L (22-29); Chloride 110 mmol/L (98-107); Globulin 3.1 g/dL (1.3-4.6); Glomerular Filtration Rate 15.8 mL/min (90-130); Glucose 92 mg/dL (65-115); Osmolality Calculated 307 mOsm/kg (285-295); Potassium 4.8 mmol/L (3.5-5.1); Sodium 142 mmol/L (136-145); Total Bilirubin 0.4 mg/dL (0.15-1.2); Total Protein 6.3 g/dL (6.6-8.7)
--- NOTE | 2019-12-18 16:41 | ED_ITS ---
Documented by User: DEEDEE Estrada 12/18/19 17:09 HPI - Male Genitourinary General: Chief complaint: Urogenital-Male Stated complaint: has kidney disease/ says its acting up Time Seen by Provider: 12/18/19 16:33 History of Present Illness: HPI Narrative: Patient is a 54-year-old male who comes to the ED lower back pain, shakes and generalized weakness. Patient was diagnosed with chronic kidney disease about 2 years ago and is scheduled to have his first dialysis on Friday. Patient says symptoms started today. Patient reports back pain is rated an 8 out of 10 is bilaterally. Denies any fever, chest pain, shortness of breath nausea/vomiting, abdominal pain, bladder or bowel symptoms. Associated symptoms: Deny dysuria, hematuria, nausea or vomiting Review of Systems Const: Reports: fatigue; Denies: fever(s) or chills Eyes: Denies: change in vision or eye discomfort ENMT: Denies: throat pain, odynophagia, nasal discharge or nasal congestion Card: Denies: chest pain, palpitations, edema, swelling of feet/ankles, dyspnea on exertion or orthopnea Resp: Denies: dyspnea, productive cough or non-productive cough GI: Denies: abdominal pain, nausea, vomiting, diarrhea, constipation or hematochezia : Denies: flank pain, difficulty urinating, dysuria or hematuria Musc: Reports: back pain (lower back pain); Denies: neck pain or extremity swelling Skin/Breast: Denies: rash or new lesions Neuro: Reports: involuntary movements ( pt describes extremities are shaking ); Denies: headache(s), numbness in extremities or weakness in extremities Physical Exam Const: COMMON NORMALS: patient oriented x3 and alert GENERAL APPEARANCE: cooperative and comfortable HENMT: COMMON NORMALS: normocephalic HEAD & SCALP: normocephalic MOUTH: Normal oral and palatal mucosa present THROAT: posterior oropharynx normal and uvula midline Neck/C-Spine: COMMON NORMALS: supple GENERAL: Yes normal visual inspection Resp: COMMON NORMALS: normal respiratory effort, No retractions, No use of accessory muscles and clear to auscultation bilaterally AUSCULTATION: clear to auscultation bilaterally Cardio: COMMON NORMALS: regular rate, regular rhythm, S1 normal heart sound present, S2 normal heart sound present, No gallops present (Cardio), No clicks present (Cardio), No murmurs present (Cardio) and Peripheral pulses 2+ throughout RATE: regular rate RHYTHM: regular rhythm HEART SOUNDS: S1 normal heart sound present and S2 normal heart sound present PERIPHERAL PULSES: Peripheral pulses 2+ throughout GI: COMMON NORMALS: Normal to inspection, nondistended, normoactive bowel sounds present, Soft to palpation, non-tender and no masses PALPATION: Yes Soft to palpation : BLADDER/KIDNEY EXAM: Yes CVA tenderness bilateral Back/Pelvis: GENERAL BACK: Yes CVA tenderness Extremity: COMMON NORMALS: normal to inspection and no pedal edema NARRATIVE EXTREMITY EXAM: Patient's hands bilaterally have very slight tremor. Neuro: COMMON NORMALS: patient oriented x3 and moves all extremities SENSORIUM/ORIENTATION: Yes alert Skin: GENERAL SKIN EXAM: dry skin Procedures Stool Hemoccult Procedural Steps Taken: stool placed in appropriate test area, developer placed on stool and control areas and controls appropriately positive and negative Hemoccult result: negative Additional Comments: Digital rectal exam performed to obtain sample. Course Vital Signs: Vital signs: Vital Signs Temperature 98.3 F 12/18/19 13:47 Pulse Rate 65 12/19/19 00:39 Respiratory Rate 16 12/19/19 00:39 Blood Pressure 161/93 12/19/19 00:39 Pulse Oximetry 93 12/19/19 00:39 MDM - Male MDM Narrative: Medical decision making narrative: Patient care transferred over to Maryjane Emery nurse practitioner. I told her about patient case lab findings and labs that are pending. Dr. Taylor is also aware of patient case. Lab Data: Attestation: I reviewed the patient's lab results. Labs: Lab Results 12/18/19 12/18/19 12/18/19 Range/Units 14:54 14:54 14:54 WBC 9.6 (4.0-10.0) 10^3/ uL RBC 2.63 L (4.1-5.3) 10^6/u L Hgb 7.4 L (11.7-16.6) g/dL Hct 23.3 L (42.0-52.0) % MCV 88.6 (80-94) fL MCH 28.1 (28.0-34.0) pg MCHC 31.8 (30.0-36.0) g/dL RDW 16.1 H (12.1-15.1) % Plt Count 184 (130-400) 10^3/c mm MPV 10.9 H (7.4-10.4) fL Neut % (Auto) 76.3 % Lymph % (Auto) 13.0 % [place] % (Auto) 7.7 % Eos % (Auto) 2.5 % Baso % (Auto) 0.3 % Neut # (Auto) 7.35 (1.8-7.7) 10^3/u L Lymph # (Auto) 1.3 (0.8-4.8) 10^3/u L [place] # (Auto) 0.7 (0.2-0.9) 10^3/u L Eos # (Auto) 0.2 (0.0-0.8) 10^3/u L Baso # (Auto) 0.0 (0.0-0.1) 10^3/u L Nucleated RBC % (a uto) 0 % Nucleated RBCs # 0.0 /100WBC Sodium 142 (136-145) mmol/L Potassium 4.8 (3.5-5.1) mmol/L Chloride 110 H (98-107) mmol/L Carbon Dioxide 24 (22-29) mmol/L Anion Gap 12.8 (5-19) BUN 51 H (6-20) mg/dL Creatinine 4.0 H (0.7-1.2) mg/dL GFR Calculation 15.8 L (90-130) mL/min Glucose 92 (65-115) mg/dL Calculated Osmolal ity 307 H (285-295) mOsm/k g Lactic Acid (0.5-2.2) mmol/L Calcium 9.1 (8.5-10.5) mg/dL Ferritin 121 (30-400) ng/mL Total Bilirubin 0.4 (0.15-1.2) mg/dL AST 22 (0-40) U/L ALT 43 H (0-41) U/L Alkaline Phosphata se 121 (40-130) IU/L C-Reactive Protein (0.0-4.9) mg/L NT-Pro-B Natriuret Pep (0-125) pg/mL Total Protein 6.3 L (6.6-8.7) g/dL Albumin 3.2 L (3.5-5.2) g/dL Globulin 3.1 (1.3-4.6) g/dL Urine Color (Yellow) Urine Appearance (CLEAR) Urine pH (5-7) Ur Specific Gravit y (1.005-1.030) Urine Protein (Negative) Urine Glucose (UA) (Normal) Urine Ketones (Negative) Urine Blood (Negative) Urine Nitrate (Negative) Urine Bilirubin (Negative) Urine Urobilinogen (Negative) mg/dL Ur Leukocyte Erica ase (Negative) Urine RBC (0-2) /hpf Urine WBC (0-5) /hpf Ur Squamous Epith Cells (0-5) /hpf Ur Transition Epit h Cell /hpf Amorphous Sediment Urine Bacteria (NONE) /hpf Coarse Granular Ca sts /lpf Urine Mucus /hpf Influenza Type A A g Influenza Type B A g SARS-CoV-2 Ag (Rap id) Blood Type Rho(D) Type Antibody Screen 12/18/19 12/18/19 12/18/19 Range/Units 14:54 14:54 16:55 WBC (4.0-10.0) 10^3/ uL RBC (4.1-5.3) 10^6/u L Hgb (11.7-16.6) g/dL Hct (42.0-52.0) % MCV (80-94) fL MCH (28.0-34.0) pg MCHC (30.0-36.0) g/dL RDW (12.1-15.1) % Plt Count (130-400) 10^3/c mm MPV (7.4-10.4) fL Neut % (Auto) % Lymph % (Auto) % [place] % (Auto) % Eos % (Auto) % Baso % (Auto) % Neut # (Auto) (1.8-7.7) 10^3/u L Lymph # (Auto) (0.8-4.8) 10^3/u L [place] # (Auto) (0.2-0.9) 10^3/u L Eos # (Auto) (0.0-0.8) 10^3/u L Baso # (Auto) (0.0-0.1) 10^3/u L Nucleated RBC % (a uto) % Nucleated RBCs # /100WBC Sodium (136-145) mmol/L Potassium (3.5-5.1) mmol/L Chloride (98-107) mmol/L Carbon Dioxide (22-29) mmol/L Anion Gap (5-19) BUN (6-20) mg/dL Creatinine (0.7-1.2) mg/dL GFR Calculation (90-130) mL/min Glucose (65-115) mg/dL Calculated Osmolal ity (285-295) mOsm/k g Lactic Acid (0.5-2.2) mmol/L Calcium (8.5-10.5) mg/dL Ferritin (30-400) ng/mL Total Bilirubin (0.15-1.2) mg/dL AST (0-40) U/L ALT (0-41) U/L Alkaline Phosphata se (40-130) IU/L C-Reactive Protein 5.5 H (0.0-4.9) mg/L NT-Pro-B Natriuret Pep 5878 H (0-125) pg/mL Total Protein (6.6-8.7) g/dL Albumin (3.5-5.2) g/dL Globulin (1.3-4.6) g/dL Urine Color Straw (Yellow) Urine Appearance Clear (CLEAR) Urine pH 5 (5-7) Ur Specific Gravit y 1.015 (1.005-1.030) Urine Protein 3+ H (Negative) Urine Glucose (UA) Trace H (Normal) Urine Ketones Negative (Negative) Urine Blood Neg (Negative) Urine Nitrate Negative (Negative) Urine Bilirubin Neg (Negative) Urine Urobilinogen Norm (Negative) mg/dL Ur Leukocyte Erica ase Negative (Negative) Urine RBC None (0-2) /hpf Urine WBC 0-4 H (0-5) /hpf Ur Squamous Epith Cells None (0-5) /hpf Ur Transition Epit h Cell 0-4 /hpf Amorphous Sediment Not Reportable Urine Bacteria Trace (NONE) /hpf Coarse Granular Ca sts 10-15 H /lpf Urine Mucus 1+ /hpf Influenza Type A A g Influenza Type B A g SARS-CoV-2 Ag (Rap id) Blood Type Rho(D) Type Antibody Screen 12/18/19 12/18/19 12/18/19 Range/Units 17:05 19:27 19:27 WBC (4.0-10.0) 10^3/ uL RBC (4.1-5.3) 10^6/u L Hgb (11.7-16.6) g/dL Hct (42.0-52.0) % MCV (80-94) fL MCH (28.0-34.0) pg MCHC (30.0-36.0) g/dL RDW (12.1-15.1) % Plt Count (130-400) 10^3/c mm MPV (7.4-10.4) fL Neut % (Auto) % Lymph % (Auto) % [place] % (Auto) % Eos % (Auto) % Baso % (Auto) % Neut # (Auto) (1.8-7.7) 10^3/u L Lymph # (Auto) (0.8-4.8) 10^3/u L [place] # (Auto) (0.2-0.9) 10^3/u L Eos # (Auto) (0.0-0.8) 10^3/u L Baso # (Auto) (0.0-0.1) 10^3/u L Nucleated RBC % (a uto) % Nucleated RBCs # /100WBC Sodium (136-145) mmol/L Potassium (3.5-5.1) mmol/L Chloride (98-107) mmol/L Carbon Dioxide (22-29) mmol/L Anion Gap (5-19) BUN (6-20) mg/dL Creatinine (0.7-1.2) mg/dL GFR Calculation (90-130) mL/min Glucose (65-115) mg/dL Calculated Osmolal ity (285-295) mOsm/k g Lactic Acid (0.5-2.2) mmol/L Calcium (8.5-10.5) mg/dL Ferritin (30-400) ng/mL Total Bilirubin (0.15-1.2) mg/dL AST (0-40) U/L ALT (0-41) U/L Alkaline Phosphata se (40-130) IU/L C-Reactive Protein (0.0-4.9) mg/L NT-Pro-B Natriuret Pep (0-125) pg/mL Total Protein (6.6-8.7) g/dL Albumin (3.5-5.2) g/dL Globulin (1.3-4.6) g/dL Urine Color (Yellow) Urine Appearance (CLEAR) Urine pH (5-7) Ur Specific Gravit y (1.005-1.030) Urine Protein (Negative) Urine Glucose (UA) (Normal) Urine Ketones (Negative) Urine Blood (Negative) Urine Nitrate (Negative) Urine Bilirubin (Negative) Urine Urobilinogen (Negative) mg/dL Ur Leukocyte Erica ase (Negative) Urine RBC (0-2) /hpf Urine WBC (0-5) /hpf Ur Squamous Epith Cells (0-5) /hpf Ur Transition Epit h Cell /hpf Amorphous Sediment Urine Bacteria (NONE) /hpf Coarse Granular Ca sts /lpf Urine Mucus /hpf Influenza Type A A g Cancelled Influenza Type B A g Cancelled SARS-CoV-2 Ag (Rap id) Cancelled Blood Type A Positive Rho(D) Type Positive Antibody Screen Negative 12/18/19 12/18/19 12/18/19 Range/Units 19:27 19:27 19:40 WBC (4.0-10.0) 10^3/ uL RBC (4.1-5.3) 10^6/u L Hgb (11.7-16.6) g/dL Hct (42.0-52.0) % MCV (80-94) fL MCH (28.0-34.0) pg MCHC (30.0-36.0) g/dL RDW (12.1-15.1) % Plt Count (130-400) 10^3/c mm MPV (7.4-10.4) fL Neut % (Auto) % Lymph % (Auto) % [place] % (Auto) % Eos % (Auto) % Baso % (Auto) % Neut # (Auto) (1.8-7.7) 10^3/u L Lymph # (Auto) (0.8-4.8) 10^3/u L [place] # (Auto) (0.2-0.9) 10^3/u L Eos # (Auto) (0.0-0.8) 10^3/u L Baso # (Auto) (0.0-0.1) 10^3/u L Nucleated RBC % (a uto) % Nucleated RBCs # /100WBC Sodium (136-145) mmol/L Potassium (3.5-5.1) mmol/L Chloride (98-107) mmol/L Carbon Dioxide (22-29) mmol/L Anion Gap (5-19) BUN (6-20) mg/dL Creatinine (0.7-1.2) mg/dL GFR Calculation (90-130) mL/min Glucose (65-115) mg/dL Calculated Osmolal ity (285-295) mOsm/k g Lactic Acid 0.3 L (0.5-2.2) mmol/L Calcium (8.5-10.5) mg/dL Ferritin (30-400) ng/mL Total Bilirubin (0.15-1.2) mg/dL AST (0-40) U/L ALT (0-41) U/L Alkaline Phosphata se (40-130) IU/L C-Reactive Protein (0.0-4.9) mg/L NT-Pro-B Natriuret Pep (0-125) pg/mL Total Protein (6.6-8.7) g/dL Albumin (3.5-5.2) g/dL Globulin (1.3-4.6) g/dL Urine Color (Yellow) Urine Appearance (CLEAR) Urine pH (5-7) Ur Specific Gravit y (1.005-1.030) Urine Protein (Negative) Urine Glucose (UA) (Normal) Urine Ketones (Negative) Urine Blood (Negative) Urine Nitrate (Negative) Urine Bilirubin (Negative) Urine Urobilinogen (Negative) mg/dL Ur Leukocyte Erica ase (Negative) Urine RBC (0-2) /hpf Urine WBC (0-5) /hpf Ur Squamous Epith Cells (0-5) /hpf Ur Transition Epit h Cell /hpf Amorphous Sediment Urine Bacteria (NONE) /hpf Coarse Granular Ca sts /lpf Urine Mucus /hpf Influenza Type A A g Negative Influenza Type B A g Negative SARS-CoV-2 Ag (Rap id) Negative Blood Type Rho(D) Type Antibody Screen Discharge Plan Discharge Patient Disposition: Home Clinical Impression: Colitis, Abnormal CT of the abdomen Back pain Qualifiers: Back pain location: low back pain Chronicity: acute Back pain laterality: bilateral Sciatica presence: without sciatica Qualified Code(s): M54.5 - Low back pain Anemia Qualifiers: Anemia type: due to chronic kidney disease Chronic kidney disease stage: stage 4 (severe) Qualified Code(s): N18.4 - Chronic kidney disease, stage 4 (severe) Condition: Stable Prescriptions: New Cipro 500 mg tablet 500 mg PO DAILY Qty: 10 RF: 0 Flagyl 500 mg tablet 500 mg PO Q12H 10 Days Qty: 20 RF: 0 hydrocodone-acetaminophen 5-325 mg tablet 1 tab PO Q4H PRN (Reason: pain) Qty: 10 RF: 0 No Action atorvastatin 40 mg tablet 40 mg PO DAILY RF: 0 carvedilol 25 mg tablet 25 mg PO BID RF: 0 torsemide 10 mg tablet 10 mg PO DAILY RF: 0 oxycodone-acetaminophen 5-325 mg tablet 1 tab PO Q6H PRN (Reason: Pain) RF: 0 amlodipine 10 mg tablet 10 mg PO DAILY RF: 0 potassium citrate 10 mEq (1,080 mg) tablet extended release 10 meq PO DAILY RF: 0 Novolog U-100 Insulin aspart 100 unit/mL solution See Rx Instructions .ROUTE .COMPLEX RF: 0 ferrous sulfate 325 mg (65 mg iron) tablet 325 mg PO BID RF: 0 montelukast 10 mg tablet 10 mg PO DAILY RF: 0 Novolog Flexpen U-100 Insulin 100 unit/mL (3 mL) insulin pen See Rx Instructions .ROUTE .COMPLEX RF: 0 pregabalin 150 mg capsule 150 mg PO BID RF: 0 Vitamin B-12 1 tab PO DAILY RF: 0 cyclobenzaprine 5 mg tablet 5 mg PO TID PRN (Reason: muscle spasm) Qty: 10 RF: 0 Discharge Orders: Discharge Order (Routine); Ordered 12/18/19 Ordered By: Maryjane Emery Referrals: Gregg Guerrero MD [Primary Care Provider] - Delores Beach DO [Family Provider] - Discharge Diet: Usual diet Discharge Activity: Limit activity as instructed Patient Instructions: Kidney Failure, Renal Failure Diet (GEN), Infectious Colitis (ED) Activity Restrictions/Additional Instructions: Take Cipro daily until all gone for infection Take Flagyl 3 times daily for infection, do not drink alcohol with medication Follow-up with your kidney specialist on Friday as scheduled If you develop worsening back pain, abdominal pain or fever, return to the emergency department for evaluation. Take hydrocodone as needed for pain Discharge Date/Time: 12/19/19 00:40 Sign Out Sign Out Data: Patient Sign Out occurred on 12/18/19 at 17:20. Patient's care was discussed, and care was transferred from to JIMMY Coffey. Coding Level of Care Code ED Hat Body Sorter for Chg Fwd Exam Comprehensive Documented by User: JIMMY Coffey 12/19/19 02:11 HPI - Male Genitourinary General: Chief complaint: Urogenital-Male Stated complaint: has kidney disease/ says its acting up Time Seen by Provider: 12/18/19 16:33 Course ED course: 54-year-old male patient presents to the emergency department with low back pain/pain radiating to his pelvis. He reports not feeling well x 2 days, shaking, reports CBG 100-150, not changed from baseline. Under the c/o Dr Osorio, plumbing instructor, [facility]. Morphine did help pain. Reports feeling better now that pain is controlled. CT scan of the abdomen pelvis, renal stone protocol pending. Care assumed from DEEDEE Estrada. C hronically anemic, anasarca noted which contributes to anemia secondary to dilution. He reports recent discontinuation of furosemide due to kidney function. CT abdomen and pelvis, renal stone protocol completed due to anemia and complaints of back pain with radiation to the lower pelvis. CT scan revealed nonspecific bibasilar consolidation, wall thickening of the distal sigmoid colon and rectum that may reflect distal colitis or incidental colon neoplasm. Covid testing completed secondary to visualization of bibasilar atelectasis. Case discussed with Dr. Lion, hospitalist, Dr Blake contacted, discussion patient can be treated as an OP -I discussed with the patient serology and CT scan results. Antibiotics, Cipro at renal dose and Flagyl as well as hydrocodone (Rx by Dr Lion)) given to the patient. He was advised to return to the emergency department if he developed worsening symptoms such as fever, hypoglycemia, worsening symptoms. He reports 2-week onset of diarrhea alternating with constipation. Advised follow-up with his primary care physician this week in regards to colitis. Verbalized understanding. Vital Signs: Vital signs: Vital Signs Temperature 98.3 F 12/18/19 13:47 Pulse Rate 65 12/19/19 00:39 Respiratory Rate 16 12/19/19 00:39 Blood Pressure 161/93 12/19/19 00:39 Pulse Oximetry 93 12/19/19 00:39 MDM - Male Lab Data: Labs: Lab Results 12/18/19 12/18/19 12/18/19 Range/Units 14:54 14:54 14:54 WBC 9.6 (4.0-10.0) 10^3/ uL RBC 2.63 L (4.1-5.3) 10^6/u L Hgb 7.4 L (11.7-16.6) g/dL Hct 23.3 L (42.0-52.0) % MCV 88.6 (80-94) fL MCH 28.1 (28.0-34.0) pg MCHC 31.8 (30.0-36.0) g/dL RDW 16.1 H (12.1-15.1) % Plt Count 184 (130-400) 10^3/c mm MPV 10.9 H (7.4-10.4) fL Neut % (Auto) 76.3 % Lymph % (Auto) 13.0 % [place] % (Auto) 7.7 % Eos % (Auto) 2.5 % Baso % (Auto) 0.3 % Neut # (Auto) 7.35 (1.8-7.7) 10^3/u L Lymph # (Auto) 1.3 (0.8-4.8) 10^3/u L [place] # (Auto) 0.7 (0.2-0.9) 10^3/u L Eos # (Auto) 0.2 (0.0-0.8) 10^3/u L Baso # (Auto) 0.0 (0.0-0.1) 10^3/u L Nucleated RBC % (a uto) 0 % Nucleated RBCs # 0.0 /100WBC Sodium 142 (136-145) mmol/L Potassium 4.8 (3.5-5.1) mmol/L Chloride 110 H (98-107) mmol/L Carbon Dioxide 24 (22-29) mmol/L Anion Gap 12.8 (5-19) BUN 51 H (6-20) mg/dL Creatinine 4.0 H (0.7-1.2) mg/dL GFR Calculation 15.8 L (90-130) mL/min Glucose 92 (65-115) mg/dL Calculated Osmolal ity 307 H (285-295) mOsm/k g Lactic Acid (0.5-2.2) mmol/L Calcium 9.1 (8.5-10.5) mg/dL Ferritin 121 (30-400) ng/mL Total Bilirubin 0.4 (0.15-1.2) mg/dL AST 22 (0-40) U/L ALT 43 H (0-41) U/L Alkaline Phosphata se 121 (40-130) IU/L C-Reactive Protein (0.0-4.9) mg/L NT-Pro-B Natriuret Pep (0-125) pg/mL Total Protein 6.3 L (6.6-8.7) g/dL Albumin 3.2 L (3.5-5.2) g/dL Globulin 3.1 (1.3-4.6) g/dL Urine Color (Yellow) Urine Appearance (CLEAR) Urine pH (5-7) Ur Specific Gravit y (1.005-1.030) Urine Protein (Negative) Urine Glucose (UA) (Normal) Urine Ketones (Negative) Urine Blood (Negative) Urine Nitrate (Negative) Urine Bilirubin (Negative) Urine Urobilinogen (Negative) mg/dL Ur Leukocyte Erica ase (Negative) Urine RBC (0-2) /hpf Urine WBC (0-5) /hpf Ur Squamous Epith Cells (0-5) /hpf Ur Transition Epit h Cell /hpf Amorphous Sediment Urine Bacteria (NONE) /hpf Coarse Granular Ca sts /lpf Urine Mucus /hpf Influenza Type A A g Influenza Type B A g SARS-CoV-2 Ag (Rap id) Blood Type Rho(D) Type Antibody Screen 12/18/19 12/18/19 12/18/19 Range/Units 14:54 14:54 16:55 WBC (4.0-10.0) 10^3/ uL RBC (4.1-5.3) 10^6/u L Hgb (11.7-16.6) g/dL Hct (42.0-52.0) % MCV (80-94) fL MCH (28.0-34.0) pg MCHC (30.0-36.0) g/dL RDW (12.1-15.1) % Plt Count (130-400) 10^3/c mm MPV (7.4-10.4) fL Neut % (Auto) % Lymph % (Auto) % [place] % (Auto) % Eos % (Auto) % Baso % (Auto) % Neut # (Auto) (1.8-7.7) 10^3/u L Lymph # (Auto) (0.8-4.8) 10^3/u L [place] # (Auto) (0.2-0.9) 10^3/u L Eos # (Auto) (0.0-0.8) 10^3/u L Baso # (Auto) (0.0-0.1) 10^3/u L Nucleated RBC % (a uto) % Nucleated RBCs # /100WBC Sodium (136-145) mmol/L Potassium (3.5-5.1) mmol/L Chloride (98-107) mmol/L Carbon Dioxide (22-29) mmol/L Anion Gap (5-19) BUN (6-20) mg/dL Creatinine (0.7-1.2) mg/dL GFR Calculation (90-130) mL/min Glucose (65-115) mg/dL Calculated Osmolal ity (285-295) mOsm/k g Lactic Acid (0.5-2.2) mmol/L Calcium (8.5-10.5) mg/dL Ferritin (30-400) ng/mL Total Bilirubin (0.15-1.2) mg/dL AST (0-40) U/L ALT (0-41) U/L Alkaline Phosphata se (40-130) IU/L C-Reactive Protein 5.5 H (0.0-4.9) mg/L NT-Pro-B Natriuret Pep 5878 H (0-125) pg/mL Total Protein (6.6-8.7) g/dL Albumin (3.5-5.2) g/dL Globulin (1.3-4.6) g/dL Urine Color Straw (Yellow) Urine Appearance Clear (CLEAR) Urine pH 5 (5-7) Ur Specific Gravit y 1.015 (1.005-1.030) Urine Protein 3+ H (Negative) Urine Glucose (UA) Trace H (Normal) Urine Ketones Negative (Negative) Urine Blood Neg (Negative) Urine Nitrate Negative (Negative) Urine Bilirubin Neg (Negative) Urine Urobilinogen Norm (Negative) mg/dL Ur Leukocyte Erica ase Negative (Negative) Urine RBC None (0-2) /hpf Urine WBC 0-4 H (0-5) /hpf Ur Squamous Epith Cells None (0-5) /hpf Ur Transition Epit h Cell 0-4 /hpf Amorphous Sediment Not Reportable Urine Bacteria Trace (NONE) /hpf Coarse Granular Ca sts 10-15 H /lpf Urine Mucus 1+ /hpf Influenza Type A A g Influenza Type B A g SARS-CoV-2 Ag (Rap id) Blood Type Rho(D) Type Antibody Screen 12/18/19 12/18/19 12/18/19 Range/Units 17:05 19:27 19:27 WBC (4.0-10.0) 10^3/ uL RBC (4.1-5.3) 10^6/u L Hgb (11.7-16.6) g/dL Hct (42.0-52.0) % MCV (80-94) fL MCH (28.0-34.0) pg MCHC (30.0-36.0) g/dL RDW (12.1-15.1) % Plt Count (130-400) 10^3/c mm MPV (7.4-10.4) fL Neut % (Auto) % Lymph % (Auto) % [place] % (Auto) % Eos % (Auto) % Baso % (Auto) % Neut # (Auto) (1.8-7.7) 10^3/u L Lymph # (Auto) (0.8-4.8) 10^3/u L [place] # (Auto) (0.2-0.9) 10^3/u L Eos # (Auto) (0.0-0.8) 10^3/u L Baso # (Auto) (0.0-0.1) 10^3/u L Nucleated RBC % (a uto) % Nucleated RBCs # /100WBC Sodium (136-145) mmol/L Potassium (3.5-5.1) mmol/L Chloride (98-107) mmol/L Carbon Dioxide (22-29) mmol/L Anion Gap (5-19) BUN (6-20) mg/dL Creatinine (0.7-1.2) mg/dL GFR Calculation (90-130) mL/min Glucose (65-115) mg/dL Calculated Osmolal ity (285-295) mOsm/k g Lactic Acid (0.5-2.2) mmol/L Calcium (8.5-10.5) mg/dL Ferritin (30-400) ng/mL Total Bilirubin (0.15-1.2) mg/dL AST (0-40) U/L ALT (0-41) U/L Alkaline Phosphata se (40-130) IU/L C-Reactive Protein (0.0-4.9) mg/L NT-Pro-B Natriuret Pep (0-125) pg/mL Total Protein (6.6-8.7) g/dL Albumin (3.5-5.2) g/dL Globulin (1.3-4.6) g/dL Urine Color (Yellow) Urine Appearance (CLEAR) Urine pH (5-7) Ur Specific Gravit y (1.005-1.030) Urine Protein (Negative) Urine Glucose (UA) (Normal) Urine Ketones (Negative) Urine Blood (Negative) Urine Nitrate (Negative) Urine Bilirubin (Negative) Urine Urobilinogen (Negative) mg/dL Ur Leukocyte Erica ase (Negative) Urine RBC (0-2) /hpf Urine WBC (0-5) /hpf Ur Squamous Epith Cells (0-5) /hpf Ur Transition Epit h Cell /hpf Amorphous Sediment Urine Bacteria (NONE) /hpf Coarse Granular Ca sts /lpf Urine Mucus /hpf Influenza Type A A g Cancelled Influenza Type B A g Cancelled SARS-CoV-2 Ag (Rap id) Cancelled Blood Type A Positive Rho(D) Type Positive Antibody Screen Negative 12/18/19 12/18/19 12/18/19 Range/Units 19:27 19:27 19:40 WBC (4.0-10.0) 10^3/ uL RBC (4.1-5.3) 10^6/u L Hgb (11.7-16.6) g/dL Hct (42.0-52.0) % MCV (80-94) fL MCH (28.0-34.0) pg MCHC (30.0-36.0) g/dL RDW (12.1-15.1) % Plt Count (130-400) 10^3/c mm MPV (7.4-10.4) fL Neut % (Auto) % Lymph % (Auto) % [place] % (Auto) % Eos % (Auto) % Baso % (Auto) % Neut # (Auto) (1.8-7.7) 10^3/u L Lymph # (Auto) (0.8-4.8) 10^3/u L [place] # (Auto) (0.2-0.9) 10^3/u L Eos # (Auto) (0.0-0.8) 10^3/u L Baso # (Auto) (0.0-0.1) 10^3/u L Nucleated RBC % (a uto) % Nucleated RBCs # /100WBC Sodium (136-145) mmol/L Potassium (3.5-5.1) mmol/L Chloride (98-107) mmol/L Carbon Dioxide (22-29) mmol/L Anion Gap (5-19) BUN (6-20) mg/dL Creatinine (0.7-1.2) mg/dL GFR Calculation (90-130) mL/min Glucose (65-115) mg/dL Calculated Osmolal ity (285-295) mOsm/k g Lactic Acid 0.3 L (0.5-2.2) mmol/L Calcium (8.5-10.5) mg/dL Ferritin (30-400) ng/mL Total Bilirubin (0.15-1.2) mg/dL AST (0-40) U/L ALT (0-41) U/L Alkaline Phosphata se (40-130) IU/L C-Reactive Protein (0.0-4.9) mg/L NT-Pro-B Natriuret Pep (0-125) pg/mL Total Protein (6.6-8.7) g/dL Albumin (3.5-5.2) g/dL Globulin (1.3-4.6) g/dL Urine Color (Yellow) Urine Appearance (CLEAR) Urine pH (5-7) Ur Specific Gravit y (1.005-1.030) Urine Protein (Negative) Urine Glucose (UA) (Normal) Urine Ketones (Negative) Urine Blood (Negative) Urine Nitrate (Negative) Urine Bilirubin (Negative) Urine Urobilinogen (Negative) mg/dL Ur Leukocyte Erica ase (Negative) Urine RBC (0-2) /hpf Urine WBC (0-5) /hpf Ur Squamous Epith Cells (0-5) /hpf Ur Transition Epit h Cell /hpf Amorphous Sediment Urine Bacteria (NONE) /hpf Coarse Granular Ca sts /lpf Urine Mucus /hpf Influenza Type A A g Negative Influenza Type B A g Negative SARS-CoV-2 Ag (Rap id) Negative Blood Type Rho(D) Type Antibody Screen Imaging Data: CT Abd/Pel: Radiologist's impression: [address] [address] [address] Scan Report Signed Patient: Martinez Albarado Unit #: [id number] : [id number] Age/Sex: 54 / M ADM Date: 12/18/19 Loc: ER Room/Bed: Attending Dr: Ordering Provider/Ordering MD: Maryjane Emery Date of Service: 12/18/19 Procedure(s): CT kidney stone [address] Accession Number(s): [id number] Report Number: [id number] PROCEDURE INFORMATION: Exam: CT Abdomen And Pelvis Without Contrast Exam date and time: 12/18/2019 5:50 PM Age: 54 years old Clinical indication: Abdominal pain; Other: Bilateral; Prior surgery; Surgery date: 6+ months; Surgery type: Appy; Patient HX: Stage 4 kidney disease diabetic C/O new onset b flank pain; Additional info: Back pain, esrd TECHNIQUE: Imaging protocol: Computed tomography of the abdomen and pelvis without contrast. Radiation optimization: All CT scans at this facility use at least one of these dose optimization techniques: automated exposure control; mA and/or kV adjustment per patient size (includes targeted exams where dose is matched to clinical indication); or iterative reconstruction. COMPARISON: CT abdomen pelvis wo con [id number] 10/30/2018 12:35 PM RADIATION DOSE METRICS: Total DLP (mGy-cm): 1567.1 FINDINGS: Lungs: Nonspecific bibasilar consolidation is present, consistent with atelectasis, edema, or pneumonia. Pleural space: There are small bilateral pleural effusions left greater than right. Heart: The heart is enlarged. Mediastinal space: A small hiatal hernia is present. A small hiatal hernia is present. Liver: Unchanged 1.8 cm hypodense nodule right lobe of the liver image 46. Gallbladder and bile ducts: Normal. No calcified stones. No ductal dilation. Pancreas: Normal. No ductal dilation. Spleen: Normal. No splenomegaly. Adrenals: Normal. No mass. Kidneys and ureters: There is bilateral punctate nephrolithiasis versus renal vascular calcifications. There is no hydronephrosis. There is inflammatory perinephric stranding. Stomach and bowel: There is moderately excessive colonic stool content. There is wall thickening of the distal sigmoid colon and rectum that may reflect distal colitis or incidental colon neoplasm image 159 through 165. Appendix: There has been an appendectomy. Intraperitoneal space: Unremarkable. No free air. No significant fluid collection. Vasculature: Unremarkable.No abdominal aortic aneurysm. Lymph nodes: Unremarkable.No enlarged lymph nodes. Urinary bladder: There is nonspecific bladder wall thickening. This may be related to incomplete distention. Reproductive: The prostate demonstrates moderate nonspecific enlargement. The seminal vesicles are normal. Bones/joints: Unremarkable. No acute fracture. Moderate degenerative changes are noted. Soft tissues: There are small bilateral fat filled inguinal hernias. There is diffuse induration of the subcutaneous fat and mesenteric fat compatible with anasarca type changes. There is a fat-containing umbilical hernia. CT/CT kidney stone [id number] IMPRESSION: 1. Nonspecific bibasilar consolidation is present, consistent with atelectasis, edema, or pneumonia. 2. There is diffuse induration of the subcutaneous fat and mesenteric fat compatible with anasarca type changes. 3. There is wall thickening of the distal sigmoid colon and rectum that may reflect distal colitis or incidental colon neoplasm. Radiation Dose CTDIVOL = (mGy): DLP = 1567.1 (mGy-cm) Dictated By: Elizabet Gabriel Signed By: Elizabet Gabriel Signed Date/Time: 12/18/191820 DD/ 19 Discharge Plan Discharge Patient Disposition: Home Clinical Impression: Colitis, Abnormal CT of the abdomen Back pain Qualifiers: Back pain location: low back pain Chronicity: acute Back pain laterality: bilateral Sciatica presence: without sciatica Qualified Code(s): M54.5 - Low back pain Anemia Qualifiers: Anemia type: due to chronic kidney disease Chronic kidney disease stage: stage 4 (severe) Qualified Code(s): N18.4 - Chronic kidney disease, stage 4 (severe) Condition: Stable Prescriptions: New Cipro 500 mg tablet 500 mg PO DAILY Qty: 10 RF: 0 Flagyl 500 mg tablet 500 mg PO Q12H 10 Days Qty: 20 RF: 0 hydrocodone-acetaminophen 5-325 mg tablet 1 tab PO Q4H PRN (Reason: pain) Qty: 10 RF: 0 No Action atorvastatin 40 mg tablet 40 mg PO DAILY RF: 0 carvedilol 25 mg tablet 25 mg PO BID RF: 0 torsemide 10 mg tablet 10 mg PO DAILY RF: 0 oxycodone-acetaminophen 5-325 mg tablet 1 tab PO Q6H PRN (Reason: Pain) RF: 0 amlodipine 10 mg tablet 10 mg PO DAILY RF: 0 potassium citrate 10 mEq (1,080 mg) tablet extended release 10 meq PO DAILY RF: 0 Novolog U-100 Insulin aspart 100 unit/mL solution See Rx Instructions .ROUTE .COMPLEX RF: 0 ferrous sulfate 325 mg (65 mg iron) tablet 325 mg PO BID RF: 0 montelukast 10 mg tablet 10 mg PO DAILY RF: 0 Novolog Flexpen U-100 Insulin 100 unit/mL (3 mL) insulin pen See Rx Instructions .ROUTE .COMPLEX RF: 0 pregabalin 150 mg capsule 150 mg PO BID RF: 0 Vitamin B-12 1 tab PO DAILY RF: 0 cyclobenzaprine 5 mg tablet 5 mg PO TID PRN (Reason: muscle spasm) Qty: 10 RF: 0 Discharge Orders: Discharge Order (Routine); Ordered 12/18/19 Ordered By: Maryjane Emery Referrals: Gregg Guerrero MD [Primary Care Provider] - Delores Beach DO [Family Provider] - Discharge Diet: Usual diet Discharge Activity: Limit activity as instructed Patient Instructions: Kidney Failure, Renal Failure Diet (GEN), Infectious Colitis (ED) Activity Restrictions/Additional Instructions: Take Cipro daily until all gone for infection Take Flagyl 3 times daily for infection, do not drink alcohol with medication Follow-up with your kidney specialist on Friday as scheduled If you develop worsening back pain, abdominal pain or fever, return to the emergency department for evaluation. Take hydrocodone as needed for pain Discharge Date/Time: 12/19/19 00:40 Sign Out Sign Out Data: Patient Sign Out occurred on 12/18/19 at 17:20. Patient's care was discussed, and care was transferred from to JIMMY Coffey. Coding Level of Care Code ED Hat Body Sorter for Chg Fwd Exam Comprehensive
--- NOTE | 2019-12-18 16:47 | ECG_ITS ---
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
[2019-12-18] MEDS: sodium chloride 0.9% 500 ML IV (17:12)
[2019-12-18] MEDS: morphine 4 mg/mL SDV 1 mL IVP ×2 (17:12→20:32)
[2019-12-18] MEDS: ondansetron 2 mg/ML SDV 2 mL 4 MG IVP (17:13)
[2019-12-18 17:24] LABS: Add Urine Culture? No; Bacteria Urine TRACE /hpf; Bilirubin Urine Neg (Negative); Blood Urine Neg (Negative); Glucose Urine UA Trace (Normal); Ketones Urine Negative (Negative); Leukocyte Esterase Urine Negative (Negative); Mucus Urine 1+ /hpf; Nitrate Urine Negative (Negative); Protein Urine 3+ (Negative); Specific Gravity, Urine 1.015 (1.005-1.030); Transitional Epi Cells Urine 0-4 /hpf; Urine Appearance Clear (CLEAR); Urine Color Straw (Yellow); Urobilinogen Urine Norm (Negative); WBC Urine 0-4 /hpf (0-5); pH Urine 5 (5-7)
--- NOTE | 2019-12-18 17:43 | CTR_ITS ---
PROCEDURE INFORMATION: Exam: CT Abdomen And Pelvis Without Contrast Exam date and time: 12/18/2019 5:50 PM Age: 54 years old Clinical indication: Abdominal pain; Other: Bilateral; Prior surgery; Surgery date: 6+ months; Surgery type: Appy; Patient HX: Stage 4 kidney disease diabetic C/O new onset b flank pain; Additional info: Back pain, esrd TECHNIQUE: Imaging protocol: Computed tomography of the abdomen and pelvis without contrast. Radiation optimization: All CT scans at this facility use at least one of these dose optimization techniques: automated exposure control; mA and/or kV adjustment per patient size (includes targeted exams where dose is matched to clinical indication); or iterative reconstruction. COMPARISON: CT abdomen pelvis wo con [id number] 10/30/2018 12:35 PM RADIATION DOSE METRICS: Total DLP (mGy-cm): 1567.1 FINDINGS: Lungs: Nonspecific bibasilar consolidation is present, consistent with atelectasis, edema, or pneumonia. Pleural space: There are small bilateral pleural effusions left greater than right. Heart: The heart is enlarged. Mediastinal space: A small hiatal hernia is present. A small hiatal hernia is present. Liver: Unchanged 1.8 cm hypodense nodule right lobe of the liver image 46. Gallbladder and bile ducts: Normal. No calcified stones. No ductal dilation. Pancreas: Normal. No ductal dilation. Spleen: Normal. No splenomegaly. Adrenals: Normal. No mass. Kidneys and ureters: There is bilateral punctate nephrolithiasis versus renal vascular calcifications. There is no hydronephrosis. There is inflammatory perinephric stranding. Stomach and bowel: There is moderately excessive colonic stool content. There is wall thickening of the distal sigmoid colon and rectum that may reflect distal colitis or incidental colon neoplasm image 159 through 165. Appendix: There has been an appendectomy. Intraperitoneal space: Unremarkable. No free air. No significant fluid collection. Vasculature: Unremarkable.No abdominal aortic aneurysm. Lymph nodes: Unremarkable.No enlarged lymph nodes. Urinary bladder: There is nonspecific bladder wall thickening. This may be related to incomplete distention. Reproductive: The prostate demonstrates moderate nonspecific enlargement. The seminal vesicles are normal. Bones/joints: Unremarkable. No acute fracture. Moderate degenerative changes are noted. Soft tissues: There are small bilateral fat filled inguinal hernias. There is diffuse induration of the subcutaneous fat and mesenteric fat compatible with anasarca type changes. There is a fat-containing umbilical hernia. CT/CT kidney stone [id number] IMPRESSION: 1. Nonspecific bibasilar consolidation is present, consistent with atelectasis, edema, or pneumonia. 2. There is diffuse induration of the subcutaneous fat and mesenteric fat compatible with anasarca type changes. 3. There is wall thickening of the distal sigmoid colon and rectum that may reflect distal colitis or incidental colon neoplasm. Radiation Dose CTDIVOL = (mGy): DLP = 1567.1 (mGy-cm)
[2019-12-18 17:57] LABS: Ferritin 121 ng/mL (30-400)
[2019-12-18 19:44] LABS: C Reactive Protein 5.5 mg/L (0.0-4.9)
[2019-12-18 20:05] LABS: Influenza A by IFA Negative (Negative); Influenza B by IFA Negative (Negative); SARS Covid-2 Antigen Negative (Negative)
[2019-12-18 20:11] LABS: Lactic Sepsis W/Reflex 0.3 mmol/L (0.5-2.2)
[2019-12-18 21:43] LABS: NT Pro B Type Natriuretic Pept 5878 pg/mL (0-125)
[2019-12-18] MEDS: ciprofloxacin 400 MG/200 ML PREMIX 200 MG IV (22:08)
[2019-12-18] MEDS: metroNIDAZOLE IV 500 MG/100 ML PREMIX 100 MG IV (22:08)
[2019-12-19 00:30] VITALS: BP 161/93; PULSE 65; RESP 15; O2SAT 93
[2019-12-19 00:39] VITALS: BP 161/93; PULSE 65; RESP 16; O2SAT 93
[2019-12-20 06:56] LABS: Coronavirus Lab Test PTC Negative
== END 2019-12-19 00:40 | disposition home or self-care (01) ==
PROVIDERS: Family Medicine; Physician Assistant; Emergency Provider Nurse Practitioner Family; Family Provider Family Medicine; PCP Family Medicine
DX: M54.5 Low back pain (principal); N18.4 Chronic kidney disease, stage 4 (severe); K52.9 Noninfective gastroenteritis and colitis, unspecified; R93.5 Abnormal findings on diagnostic imaging of other abdominal regions, including retroperitoneum; Z79.4 Long term (current) use of insulin
CPT/HCPCS: 12345; 36415; 74176; 80053; 81001; 82272; 82728; 83605; 83880; 85025; 86140; 86850; 86900; 87426; 87635; 87804; 93005; 96365; 96367; 96375; 99284; J0744; J2270; J2405; J7040; S0030

== ENCOUNTER 2019-12-19 11:27 | Emergency (ER) | payer MEDICARE, MEDICAID, SELFPAY ==
[2019-12-19] MEDS: EPINEPHrine 0.1 mg/mL SYR 10 mL 1 MG IVP (11:28)
[2019-12-19 11:29] VITALS: PULSE 0; RESP 0; BMI 27.2
--- NOTE | 2019-12-19 11:31 | W.ED.CPR ---
HPI - CPR General: Stated Complaint: CPR in progress/Cardiac arrest Time Seen by Provider: 12/19/19 11:30 Source: EMS Mode of arrival: EMS Limitations: physical limitation History of Present Illness: HPI narrative: 54-year-old male who is brought in by EMS with CPR in place. Per EMS family had seen patient for 10 minutes and came to his room and found him unresponsive. They started CPR and called EMS. EMS states that they placed an eye gel and have been performing CPR for roughly 45 minutes. Patient is given multiple rounds of epinephrine. Per EMS patient has been in asystole the whole time. complaint: found unresponsive Review of Systems General: Reports: ROS unobtainable due to medical condition Physical Exam Const: COMMON NORMALS: negative for patient oriented x3 EXAM LIMITATIONS: altered mental status OTHER: Unresponsive with no pulse HENMT: COMMON NORMALS: normocephalic and atraumatic HEAD & SCALP: normocephalic and atraumatic Eye: COMMON NORMALS: negative for Equal, round and reactive pupils present PUPIL: No Equal, round and reactive pupils present Neck/C-Spine: COMMON NORMALS: supple Chest: COMMONS NORMALS: normal inspection of the chest Resp: OTHER: Good breath sounds bilaterally patient does have an eye gel in place Cardio: OTHER: No pulse noted GI: COMMON NORMALS: Normal to inspection, nondistended, normoactive bowel sounds present Neuro: COMMON NORMALS: negative for patient oriented x3 Skin: COMMON NORMALS: no rashes or lesions noted GENERAL SKIN EXAM: no rashes or lesions noted MDM - Cardiac Arrest/CPR MDM Narrative: Medical decision making narrative: Patient presents here cardiac arrest. Patient had been down for a long time. Did give him 1 round epinephrine here and check an ultrasound and patient had no cardiac activity and time of was called at 1131. Discharge Plan Discharge Patient Disposition: Clinical Impression: Cardiac arrest Condition: Stable Prescriptions: No Action atorvastatin 40 mg tablet 40 mg PO DAILY RF: 0 carvedilol 25 mg tablet 25 mg PO BID RF: 0 torsemide 10 mg tablet 10 mg PO DAILY RF: 0 oxycodone-acetaminophen 5-325 mg tablet 1 tab PO Q6H PRN (Reason: Pain) RF: 0 amlodipine 10 mg tablet 10 mg PO DAILY RF: 0 potassium citrate 10 mEq (1,080 mg) tablet extended release 10 meq PO DAILY RF: 0 Novolog U-100 Insulin aspart 100 unit/mL solution See Rx Instructions .ROUTE .COMPLEX RF: 0 ferrous sulfate 325 mg (65 mg iron) tablet 325 mg PO BID RF: 0 montelukast 10 mg tablet 10 mg PO DAILY RF: 0 Novolog Flexpen U-100 Insulin 100 unit/mL (3 mL) insulin pen See Rx Instructions .ROUTE .COMPLEX RF: 0 pregabalin 150 mg capsule 150 mg PO BID RF: 0 Vitamin B-12 1 tab PO DAILY RF: 0 cyclobenzaprine 5 mg tablet 5 mg PO TID PRN (Reason: muscle spasm) Qty: 10 RF: 0 Cipro 500 mg tablet 500 mg PO DAILY Qty: 10 RF: 0 Flagyl 500 mg tablet 500 mg PO Q12H 10 Days Qty: 20 RF: 0 hydrocodone-acetaminophen 5-325 mg tablet 1 tab PO Q4H PRN (Reason: pain) Qty: 10 RF: 0 Referrals: Gregg Guerrero MD [Primary Care Provider] - Delores Beach DO [Family Provider] - Coding Level of Care Code ED Service Girl for Felice Hancock
--- NOTE | 2019-12-19 11:46 | PC.NURSE ---
Zoll combo pads applied to patient. EMS had partially cut the patients clothes off. They were removed completely to gain access to patient. 3 cardiac ecg strips printed and scanned to chart.
--- NOTE | 2019-12-19 11:52 | PC.NURSE ---
Dr Parra updated family. Spoke with Pola Johnston, associate merchant, jose rafael to release the body.
--- NOTE | 2019-12-19 12:25 | PC.NURSE ---
switchboard operator supervisor notified [facility].
--- NOTE | 2019-12-19 12:42 | PC.NURSE ---
Family at bedside.
[2019-12-19 13:49] VITALS: PULSE 0; RESP 0
== END 2019-12-19 13:50 | disposition expired ==
LOC: ER 11:57
PROVIDERS: Emergency Provider Emergency Medicine; Family Provider Family Medicine; PCP Family Medicine
DX: I46.9 Cardiac arrest, cause unspecified (principal); Z79.4 Long term (current) use of insulin
CPT/HCPCS: 12345; 99282; 99283; J0171